=== PATIENT | male | born 1945 | race Caucasian/White ===

== ENCOUNTER 2017-02-05 06:00 | Outpatient (CLI) ==
[2017-02-06 03:37] VITALS: BMI 37.3
== END 2017-02-05 06:01 | disposition home or self-care (01) ==
LOC: AMBL 06:00
PROVIDERS: ATTEND Family Medicine
DX: I50.9 Heart failure, unspecified (principal); R41.0 Disorientation, unspecified; E16.2 Hypoglycemia, unspecified

== ENCOUNTER 2017-02-05 12:29 | Emergency (ER) ==
[2017-02-05 12:39] VITALS: BP 120/75; TEMP 96.5; BMI 36.8
[2017-02-05] MEDS ORDERED: DEXTROSE 50%-WATER ABBOJECT ONE (13:09)
[2017-02-05 13:18] LABS: BASOPHILS # (AUTO) 0.1 K/uL (0-0.2); BASOPHILS % (AUTO) 0.7 % (0.0-3.0); EOSINOPHILS # (AUTO) 0.4 K/ul (0.0-0.7); EOSINOPHILS % (AUTO) 2.9 % (0.0-7.0); HEMATOCRIT 42.4 % (42.0-52.0); HEMOGLOBIN 14.2 g/dl (14.0-18.0); IMMATURE GRANULOCYTE % (AUTO) 1.3 % (0.0-5.0); LYMPHOCYTES # (AUTO) 1.1 K/uL (0.60-3.4); LYMPHOCYTES % (AUTO) 7.5 (10.0-50.0); MEAN CORPUSCULAR HEMOGLOBIN 28.7 pg (27.0-31.0); MEAN CORPUSCULAR HGB CONC 33.5 (31.8-35.4); MEAN CORPUSCULAR VOLUME 85.7 fl (80.0-94.0); MONOCYTES # (AUTO) 1.1 K/uL (0.4-2.0); MONOCYTES % (AUTO) 7.4 (0-10); NEUTROPHILS # (AUTO) 12.1 K/ul (2.0-6.9); NEUTROPHILS % (AUTO) 80.2; PLATELET COUNT 177 10^3/uL (140-440); RED BLOOD COUNT 4.95 10^6/ul (4.70-6.10); WHITE BLOOD COUNT 15.13 K/ul (4.2-10.2)
[2017-02-05 13:33] LABS: ALBUMIN/GLOBULIN RATIO 0.97; ANION GAP 11.4; BILIRUBIN,TOTAL 0.22 mg/dL (0.00-1.20); BUN/CREATININE RATIO 33.96; CALCIUM 9.6 mg/dL (8.2-10.2); CREATININE 1.06 mg/dL (0.60-1.10); POTASSIUM 5.4 mmol/L (3.5-5.1); TOTAL PROTEIN 6.1 g/dL (5.8-8.1)
--- NOTE | 2017-02-05 14:39 | ED.PDOC ---
General ED Provider: Dr. LISE ALVARES Chief Complaint: Diabetes Stated Complaint: hypoglycemia Time Seen by Physician: 12:30 (at 5 am blood sugar was low he was unresponsive EMS GAVE [id number]) Mode of Arrival: Wheelchair Information Source: Patient, Family Exam Limitations: No limitations Primary Care Provider: ROBERT WALKER Nursing and Triage Documentation Reviewed and Agree: Yes (PT REFUSED TRANSFER AT 5 AM ARRIVED BS38 BUT NO LOC) Endocrine Complaint Exam - Diabetic Complication Complaint/Exam Symptoms Are: Resolved Initial Severity: Moderate Current Severity: Moderate Aggravating: Reports: None Alleviating: Reports: Food Associated Signs and Symptoms: Denies: Decreased LOC, Polydipsia, Polyuria, Polyphagia, Weight loss, Abdominal pain, Nausea, Vomiting, Fever, Diaphoresis, Fruity breath Related History: Reports: Similar episode Cardiac Risk Factors: Reports: DM Review of Systems - Review Of Systems Constitutional: Reports: Malaise, Weakness Eyes: Reports: No symptoms Ears, Nose, Mouth, Throat: Reports: No symptoms Respiratory: Reports: No symptoms Cardiac: Reports: No symptoms GI: Reports: No symptoms : Reports: No symptoms Musculoskeletal: Reports: No symptoms Skin: Reports: No symptoms Neurological: Reports: No symptoms Endocrine: Reports: No symptoms Hematologic/Lymphatic: Reports: No symptoms All Other Systems: Reviewed and Negative Past Medical History - Past Medical History Previously Healthy: No Endocrine: Reports: DM 2 Cardiovascular: Reports: Hypertension Respiratory: Reports: COPD Hematological: Reports: None Gastrointestinal: Reports: None Genitourinary: Reports: None Neuro/Psych: Reports: None Musculoskeletal: Reports: None Cancer: Reports: None - Surgical History General Surgical History: Reports: None - Family History Family History: Reports: None - Social History Smoking Status: Former smoker Hx Substance Use: No Alcohol Screening: None Physical Exam - Physical Exam Appearance: Well-appearing, No pain distress, Well-nourished Eyes: KD, EOMI, Conjunctiva clear ENT: Ears normal, Nose normal, Oropharynx normal Respiratory: Airway patent, Breath sounds clear, Breath sounds equal, Respirations nonlabored Cardiovascular: RRR, Pulses normal, No rub, No murmur GI/: Soft, Nontender, No masses, Bowel sounds normal, No Organomegaly Musculoskeletal: Normal strength, ROM intact, No edema, No calf tenderness Skin: Warm, Dry, Normal color Neurological: Sensation intact, Motor intact, Reflexes intact, Cranial nerves intact, Alert, Oriented Psychiatric: Affect appropriate, Mood appropriate Critical Care Note - Critical Care Note Total Time (mins): 0 Course - Course Hematology/Chemistry: 02/05/17 13:08 02/05/17 13:08 Orders, Labs, Meds: Lab Review 02/05/17 13:08 WBC 15.13 H RBC 4.95 Hgb 14.2 Hct 42.4 MCV 85.7 MCH 28.7 MCHC 33.5 RDW Coeff of Niurka 13.8 Plt Count 177 Immature Gran % (Auto) 1.3 Neut % (Auto) 80.2 Lymph % (Auto) 7.5 L [place] % (Auto) 7.4 Eos % (Auto) 2.9 Baso % (Auto) 0.7 Immature Gran # (Auto) 0.2 Neut # 12.1 H Lymph # 1.1 [place] # 1.1 Eos # 0.4 Baso # 0.1 Sodium 135 L Potassium 5.4 H Chloride 111 H Carbon Dioxide 18 L Anion Gap 11.4 BUN 36 H Creatinine 1.06 Estimated GFR (MDRD) 69.00 BUN/Creatinine Ratio 33.96 Glucose 44 L* Calcium 9.6 Total Bilirubin 0.22 AST 15 ALT 16 Alkaline Phosphatase 138 H Total Protein 6.1 Albumin 3.0 L Globulin 3.1 Albumin/Globulin Ratio 0.97 Orders Category Date Time Status ED ACCUCHECK ASSESSMENT .ONCE EMERGENCY 02/05/17 13:17 Active CBC W/ AUTO DIFF Stat LAB 02/05/17 13:08 Completed COMPREHENSIVE METABOLIC PANEL Stat LAB 02/05/17 13:08 Completed Dextrose 50 % in Water [Dextrose 50%-Water Abboject] MEDS 02/05/17 13:09 Discontinued 50 ml .ROUTE .STK-MED ONE Vital Signs: Temp Pulse Resp BP Pulse Ox 02/05/17 12:29 96.5 F L 80 20 120/75 88 L Departure - Departure Time of Disposition: 14:39 Disposition: HOME SELF-CARE Discharge Problem: Hypoglycemia Instructions: Hypoglycemia in a Person with Diabetes (ED) Condition: Good Pt referred to PMD for follow-up: No Additional Instructions: Please call your Family Physician as soon as possible to schedule a follow-up appointment. Prescriptions: Dextrose 50 % in Water [Dextrose 50%-Water Abboject] 50 ml IV ONCE #1 disp.syrin Allergies/Adverse Reactions: Allergies indomethacin [From Indocin] Adverse Reaction (Verified 02/05/17 12:48) indomethacin sodium [From Indocin] Adverse Reaction (Verified 02/05/17 12:48) morphine Adverse Reaction (Verified 02/05/17 12:48) Penicillins Adverse Reaction (Verified 02/05/17 12:48) Home Medications: Ambulatory Orders Albuterol Sulfate [Albuterol Sulfate Hfa] 90 mcg IH QID PRN 12/04/14 Amlodipine Besylate [Norvasc] 10 mg PO DAILY 12/04/14 Aspirin [Aspirin EC] 81 mg PO DAILYWM 12/04/14 Cholecalciferol (Vitamin D3) [Vitamin D-3] 5,000 unit PO DAILY 12/04/14 Cyanocobalamin (Vitamin B-12) [B-12] 100 mcg PO DAILY 12/04/14 Glipizide [Glipizide ER] 10 mg PO BID 12/04/14 Metformin HCl 500 mg PO BID 12/04/14 Omeprazole [Prilosec] 20 mg PO BIDAC 12/04/14 Tiotropium [place] [Spiriva] 1 cap IH DAILY 12/04/14 Albuterol Sulfate 0.083% Neb [Albuterol 0.083% Neb] 1 vial NEB RTBID 02/05/17 Atorvastatin Calcium [Lipitor] 80 mg PO DAILY 02/05/17 Clopidogrel Bisulfate [Plavix] 75 mg PO DAILY 02/05/17 Dextrose 50 % in Water [Dextrose 50%-Water Abboject] 50 ml IV ONCE #1 disp.syrin 02/05/17 Hydrochlorothiazide 12.5 mg PO DAILY 02/05/17 Isosorbide Dinitrate 30 mg PO DAILY 02/05/17 Metoprolol Tartrate [Lopressor] 100 mg PO BID 02/05/17 Nystatin/Triamcin [Mycolog] 1 applic TP BID 02/05/17 Spironolactone [Aldactone] 25 mg PO DAILY 02/05/17 Theophylline Anhydrous [Theophylline] 400 mg PO BEDTIME 02/05/17
[2017-02-05] MEDS ORDERED: DEXTROSE 50%-WATER ABBOJECT IVP ONE (15:03)
== END 2017-02-05 15:04 | disposition home or self-care (01) ==
LOC: ED 12:29
DX: E11.649 Type 2 diabetes mellitus with hypoglycemia without coma (principal); Z79.899 Other long term (current) drug therapy
CPT/HCPCS: 36415; 80053; 82962; 85025; 96374; 99282

== ENCOUNTER 2017-02-05 21:41 | Inpatient (IN) ==
[2017-02-05 22:37] LABS: BASOPHILS # (AUTO) 0.2 K/uL (0-0.2); BASOPHILS % (AUTO) 1.1 % (0.0-3.0); EOSINOPHILS # (AUTO) 0.5 K/ul (0.0-0.7); HEMATOCRIT 41.3 % (42.0-52.0); HEMOGLOBIN 13.6 g/dl (14.0-18.0); IMMATURE GRANULOCYTE % (AUTO) 1.5 % (0.0-5.0); LYMPHOCYTES # (AUTO) 1.5 K/uL (0.60-3.4); LYMPHOCYTES % (AUTO) 11.6 (10.0-50.0); MEAN CORPUSCULAR HEMOGLOBIN 28.2 pg (27.0-31.0); MEAN CORPUSCULAR HGB CONC 32.9 (31.8-35.4); MEAN CORPUSCULAR VOLUME 85.5 fl (80.0-94.0); MONOCYTES # (AUTO) 1.2 K/uL (0.4-2.0); MONOCYTES % (AUTO) 9.3 (0-10); NEUTROPHILS # (AUTO) 9.5 K/ul (2.0-6.9); NEUTROPHILS % (AUTO) 72.5; PLATELET COUNT 165 10^3/uL (140-440); RED BLOOD COUNT 4.83 10^6/ul (4.70-6.10); WHITE BLOOD COUNT 13.16 K/ul (4.2-10.2)
--- NOTE | 2017-02-05 22:41 | ED.PDOC ---
General ED Provider: Dr. AMBREEN NICHOLSON Chief Complaint: Hypoglycemia Stated Complaint: Been hypoglycemic whole day, no changes in medications, last BS is 54. Time Seen by Physician: 22:38 Mode of Arrival: Wheelchair Information Source: Patient Primary Care Provider: NITZA RI Nursing and Triage Documentation Reviewed and Agree: Yes Endocrine Complaint Exam - Diabetic Complication Complaint/Exam Symptoms Are: Still present Timing: Constant Initial Severity: Mild Current Severity: Mild Character: Alert Aggravating: Reports: None Alleviating: Reports: Food Associated Signs and Symptoms: Denies: Decreased LOC, Polydipsia, Polyuria, Polyphagia, Weight loss, Abdominal pain, Nausea, Vomiting, Fever, Diaphoresis, Fruity breath Cardiac Risk Factors: Reports: DM, Hypertension CVA Risk Factors: Reports: DM, Hypertension Serious Bacterial Infection Risk Factors: Reports: None Related Surgical History: Reports: None Acetone on Breath: No Dry Mucous Membranes: No Kussmaul Respirations: No Meningeal Signs: No Focal Weakness: None Focal Sensory Loss: None Gait: Normal Nystagmus Present: No Gag Reflex Present: Yes Finger to Nose: Normal Romberg Test Positive: No Babinski Sign: Negative Right, Negative Left Differential Diagnoses: Hypoglycemia, Sepsis Review of Systems - Review Of Systems Constitutional: Reports: Malaise, Weakness Eyes: Reports: No symptoms Ears, Nose, Mouth, Throat: Reports: No symptoms Respiratory: Reports: Orthopnea, Short of air Cardiac: Reports: No symptoms GI: Reports: No symptoms : Reports: No symptoms Musculoskeletal: Reports: No symptoms Skin: Reports: No symptoms Neurological: Reports: No symptoms Endocrine: Reports: No symptoms Hematologic/Lymphatic: Reports: No symptoms All Other Systems: Reviewed and Negative Past Medical History - Past Medical History Previously Healthy: No Endocrine: Reports: DM 2 Cardiovascular: Reports: Hypertension, CHF Respiratory: Reports: COPD Hematological: Reports: None Gastrointestinal: Reports: None Genitourinary: Reports: None Neuro/Psych: Reports: None Musculoskeletal: Reports: None Cancer: Reports: None - Surgical History General Surgical History: Reports: None - Family History Family History: Reports: None - Social History Smoking Status: Former smoker Hx Substance Use: No Alcohol Screening: None - Immunizations Tetanus Shot up to Date: Yes Physical Exam - Physical Exam Appearance: Well-appearing, No pain distress, Well-nourished Eyes: KD, EOMI, Conjunctiva clear ENT: Ears normal, Nose normal, Oropharynx normal Respiratory: Airway patent, Breath sounds clear, Breath sounds equal, Respirations nonlabored Cardiovascular: RRR, Pulses normal, No rub, No murmur GI/: Soft, Nontender, No masses, Bowel sounds normal, No Organomegaly Musculoskeletal: Normal strength, ROM intact, No edema, No calf tenderness Skin: Warm, Dry, Normal color Neurological: Sensation intact, Motor intact, Reflexes intact, Cranial nerves intact, Alert, Oriented Psychiatric: Affect appropriate, Mood appropriate Re-Evaluation - Re-Evaluation Time of Re-Evaluation: 02:48 (72) Status: Unchanged, Improved Critical Care Note - Critical Care Note Total Time (mins): 0 Course - Course Hematology/Chemistry: 02/05/17 22:30 02/05/17 22:30 Orders, Labs, Meds: Lab Review 02/05/17 22:30 WBC 13.16 H RBC 4.83 Hgb 13.6 L Hct 41.3 L MCV 85.5 MCH 28.2 MCHC 32.9 RDW Coeff of Niurka 14.0 Plt Count 165 Immature Gran % (Auto) 1.5 Neut % (Auto) 72.5 Lymph % (Auto) 11.6 [place] % (Auto) 9.3 Eos % (Auto) 4.0 Baso % (Auto) 1.1 Immature Gran # (Auto) 0.2 Neut # 9.5 H Lymph # 1.5 [place] # 1.2 Eos # 0.5 Baso # 0.2 Sodium 135 L Potassium 5.7 H Chloride 110 H Carbon Dioxide 19 L Anion Gap 11.7 BUN 37 H Creatinine 1.13 H Estimated GFR (MDRD) 64.00 BUN/Creatinine Ratio 32.74 Glucose 44 L* Calcium 9.2 Total Bilirubin 0.22 AST 14 L ALT 15 Alkaline Phosphatase 139 H Total Protein 5.9 Albumin 2.9 L Globulin 3.0 Albumin/Globulin Ratio 0.97 Orders Category Date Time Status ACCUCHECK (ED) [ED ACCUCHECK ASSESSMENT] .ONCE EMERGENCY 02/06/17 00:40 Active Saline Lock [ED IV/MEDIPORT/POWERPORT] .ONCE EMERGENCY 02/05/17 22:22 Active CBC W/ AUTO DIFF Stat LAB 02/05/17 22:30 Completed COMPREHENSIVE METABOLIC PANEL Stat LAB 02/05/17 22:30 Completed 0.9 % Sodium Chloride [Saline Flush] MEDS 02/05/17 22:22 Ordered 1 syr IVF PRN PRN Dextrose 5 % and 0.9 % NaCl [Dextrose 5%-Ns IV Solution MEDS 02/05/17 22:59 Discontinued ] 1,000 ml IV 250 mls/hr Dextrose 5 % and 0.9 % NaCl [Dextrose 5%-Ns IV Solution MEDS 02/05/17 23:30 Active ] 1,000 ml IV 50 mls/hr Dextrose 50 % in Water [Dextrose 50%-Water Abboject] MEDS 02/05/17 23:14 Discontinued 50 ml IVP ONCE STA Medications Generic Name Dose Route Start Last Admin Trade Name Freq PRN Reason Stop Dose Admin Dextrose/Sodium Chloride 1,000 mls @ 50 mls/hr 02/05/17 23:30 02/05/17 23:46 Dextrose 5%-Ns Iv Solution IV 02/06/17 18:58 50 mls/hr .Q20H STA Administration Sodium Chloride 1 syr 02/05/17 22:22 Saline Flush IVF PRN PRN To flush IV Discontinued Medications Generic Name Dose Route Start Last Admin Trade Name Freq PRN Reason Stop Dose Admin Dextrose 50 ml 02/05/17 23:14 02/05/17 23:27 Dextrose 50%-Water Abboject IVP 02/05/17 23:15 50 ml ONCE STA Administration Dextrose/Sodium Chloride 1,000 mls @ 250 mls/hr 02/05/17 22:59 02/05/17 23:27 Dextrose 5%-Ns Iv Solution IV 02/06/17 02:58 250 mls/hr .Q4H STA Administration Vital Signs: Temp Pulse Resp BP Pulse Ox 02/05/17 21:44 98.1 F 74 22 107/71 87 L Departure - Departure Time of Disposition: 02:00 Disposition: ADMITTED INPATIENT Discharge Problem: Hypoglycemia Instructions: Hypoglycemia in a Person with Diabetes (ED) Condition: Stable Pt referred to PMD for follow-up: Yes Additional Instructions: stop taking glipizide. keep checking the blood sugars needs f/u with PMD Allergies/Adverse Reactions: Allergies indomethacin [From Indocin] Adverse Reaction (Verified 02/05/17 21:54) indomethacin sodium [From Indocin] Adverse Reaction (Verified 02/05/17 21:54) morphine Adverse Reaction (Verified 02/05/17 21:54) Penicillins Adverse Reaction (Verified 02/05/17 21:54) Home Medications: Ambulatory Orders Albuterol Sulfate [Albuterol Sulfate Hfa] 90 mcg IH QID PRN 12/04/14 Amlodipine Besylate [Norvasc] 10 mg PO DAILY 12/04/14 Aspirin [Aspirin EC] 81 mg PO DAILYWM 12/04/14 Cholecalciferol (Vitamin D3) [Vitamin D-3] 5,000 unit PO DAILY 12/04/14 Cyanocobalamin (Vitamin B-12) [B-12] 100 mcg PO DAILY 12/04/14 Glipizide [Glipizide ER] 10 mg PO BID 12/04/14 Metformin HCl 500 mg PO BID 12/04/14 Omeprazole [Prilosec] 20 mg PO BIDAC 12/04/14 Tiotropium [place] [Spiriva] 1 cap IH DAILY 12/04/14 Albuterol Sulfate 0.083% Neb [Albuterol 0.083% Neb] 1 vial NEB RTBID 02/05/17 Atorvastatin Calcium [Lipitor] 80 mg PO DAILY 02/05/17 Clopidogrel Bisulfate [Plavix] 75 mg PO DAILY 02/05/17 Hydrochlorothiazide 12.5 mg PO DAILY 02/05/17 Isosorbide Dinitrate 30 mg PO DAILY 02/05/17 Metoprolol Tartrate [Lopressor] 100 mg PO BID 02/05/17 Nystatin/Triamcin [Mycolog] 1 applic TP BID 02/05/17 Spironolactone [Aldactone] 25 mg PO DAILY 02/05/17 Theophylline Anhydrous [Theophylline] 400 mg PO BEDTIME 02/05/17 Disposition Discussed With: Patient, Family
[2017-02-05 22:56] LABS: ALBUMIN 2.9 g/dL (3.4-5.0); ALBUMIN/GLOBULIN RATIO 0.97; ANION GAP 11.7; BILIRUBIN,TOTAL 0.22 mg/dL (0.00-1.20); BUN/CREATININE RATIO 32.74; CALCIUM 9.2 mg/dL (8.2-10.2); CREATININE 1.13 mg/dL (0.60-1.10); POTASSIUM 5.7 mmol/L (3.5-5.1); TOTAL PROTEIN 5.9 g/dL (5.8-8.1)
[2017-02-05] MEDS ORDERED: DEXTROSE 25%-WATER SYRINGE IVP ONE (22:59)
[2017-02-05] MEDS ORDERED: DEXTROSE 5%-NS IV SOLUTION 1,000 ML IV STA ×2 (22:59→23:30)
[2017-02-05] MEDS ORDERED: DEXTROSE 50%-WATER ABBOJECT IVP STA (23:14)
[2017-02-06] MEDS ORDERED: D5%-NS-KCL 20 MEQ/L IV SOL 1,000 ML IV SCH (03:00)
[2017-02-06 03:37] VITALS: BMI 37.3
[2017-02-06 04:51] LABS: BASOPHILS # (AUTO) 0.1 K/uL (0-0.2); BASOPHILS % (AUTO) 1.2 % (0.0-3.0); EOSINOPHILS # (AUTO) 0.6 K/ul (0.0-0.7); EOSINOPHILS % (AUTO) 5.3 % (0.0-7.0); HEMATOCRIT 40.4 % (42.0-52.0); HEMOGLOBIN 13.2 g/dl (14.0-18.0); IMMATURE GRANULOCYTE % (AUTO) 1.7 % (0.0-5.0); LYMPHOCYTES # (AUTO) 1.6 K/uL (0.60-3.4); LYMPHOCYTES % (AUTO) 14.8 (10.0-50.0); MEAN CORPUSCULAR HEMOGLOBIN 28.3 pg (27.0-31.0); MEAN CORPUSCULAR HGB CONC 32.7 (31.8-35.4); MEAN CORPUSCULAR VOLUME 86.5 fl (80.0-94.0); MONOCYTES # (AUTO) 1.1 K/uL (0.4-2.0); NEUTROPHILS # (AUTO) 7.1 K/ul (2.0-6.9); PLATELET COUNT 121 10^3/uL (140-440); RED BLOOD COUNT 4.67 10^6/ul (4.70-6.10); WHITE BLOOD COUNT 10.64 K/ul (4.2-10.2)
[2017-02-06 05:08] LABS: ALBUMIN 2.7 g/dL (3.4-5.0); ANION GAP 10.9; BILIRUBIN,TOTAL 0.31 mg/dL (0.00-1.20); BUN/CREATININE RATIO 28.44; CALCIUM 9.1 mg/dL (8.2-10.2); CREATININE 1.09 mg/dL (0.60-1.10); POTASSIUM 5.9 mmol/L (3.5-5.1); TOTAL PROTEIN 5.4 g/dL (5.8-8.1)
[2017-02-06] MEDS: ALBUTEROL 0.083% NEB NEB SCH ×2 (05:40→17:03)
[2017-02-06] MEDS: DEXTROSE 5%-NS IV SOLUTION 1,000 ML IV SCH (05:55)
[2017-02-06] MEDS: PRILOSEC PO SCH ×2 (06:20→16:52)
[2017-02-06] MEDS ORDERED: LOVENOX SUBCUT SCH (09:00)
[2017-02-06] MEDS ORDERED: NON-FORMULARY MEDICATION (Atorvastatin Calcium [Lipitor] 80 MG) PO SCH ×22 (09:00)
[2017-02-06] MEDS ORDERED: NON-FORMULARY MEDICATION (Cholecalciferol (Vitamin D3) [Vitamin D3] 5,000 UNIT) PO SCH ×22 (09:00)
[2017-02-06] MEDS ORDERED: NON-FORMULARY MEDICATION (Hydrochlorothiazide [Hydrochlorothiazide] 12.5 MG) PO SCH ×22 (09:00)
[2017-02-06] MEDS ORDERED: NON-FORMULARY MEDICATION (Metoprolol Tartrate [Lopressor] 100 MG) PO SCH ×22 (09:00)
[2017-02-06] MEDS ORDERED: NON-FORMULARY MEDICATION (Isosorbide Dinitrate [Isosorbide Dinitrate] 30 MG) PO SCH ×22 (09:00)
[2017-02-06] MEDS: ASPIRIN EC PO SCH (09:30)
[2017-02-06] MEDS: ALDACTONE PO SCH (09:30)
[2017-02-06] MEDS: CYANOCOBALAMIN 100 MCG PO SCH (09:30)
[2017-02-06] MEDS: LIPITOR PO SCH (09:31)
[2017-02-06] MEDS: HYDROCHLOROTHIAZIDE PO SCH (09:31)
[2017-02-06] MEDS: LOPRESSOR PO SCH ×2 (09:33→20:10)
[2017-02-06] MEDS: MYCOLOG TP SCH ×2 (09:35→20:10)
[2017-02-06] MEDS: NORVASC PO SCH (09:37)
[2017-02-06] MEDS: PLAVIX PO SCH (09:37)
[2017-02-06] MEDS: SPIRIVA IH SCH (09:39)
[2017-02-06] MEDS: SORBITRATE PO SCH (09:39)
[2017-02-06] MEDS: VITAMIN D PO SCH (09:40)
[2017-02-06 10:26] LABS: CREATINE KINASE 25 U/L; POTASSIUM 5.5 mmol/L (3.5-5.1)
[2017-02-06] MEDS ORDERED: KAYEXALATE SUSP PO STA (10:45)
[2017-02-06 17:50] LABS: CREATINE KINASE 22 U/L
[2017-02-06] MEDS: THEOPHYLLINE ANHYDROUS 400 MG PO SCH (20:11)
[2017-02-07] MEDS: DEXTROSE 5%-NS IV SOLUTION 1,000 ML IV SCH (02:58)
[2017-02-07] MEDS: ALBUTEROL 0.083% NEB NEB SCH ×2 (05:00→17:05)
[2017-02-07 05:02] LABS: BASOPHILS # (AUTO) 0.1 K/uL (0-0.2); BASOPHILS % (AUTO) 1.2 % (0.0-3.0); EOSINOPHILS # (AUTO) 0.5 K/ul (0.0-0.7); EOSINOPHILS % (AUTO) 5.4 % (0.0-7.0); HEMATOCRIT 39.1 % (42.0-52.0); HEMOGLOBIN 12.6 g/dl (14.0-18.0); IMMATURE GRANULOCYTE % (AUTO) 0.8 % (0.0-5.0); LYMPHOCYTES # (AUTO) 1.3 K/uL (0.60-3.4); LYMPHOCYTES % (AUTO) 15.1 (10.0-50.0); MEAN CORPUSCULAR HEMOGLOBIN 28.1 pg (27.0-31.0); MEAN CORPUSCULAR HGB CONC 32.2 (31.8-35.4); MEAN CORPUSCULAR VOLUME 87.1 fl (80.0-94.0); MONOCYTES # (AUTO) 0.8 K/uL (0.4-2.0); MONOCYTES % (AUTO) 9.3 (0-10); NEUTROPHILS # (AUTO) 5.7 K/ul (2.0-6.9); NEUTROPHILS % (AUTO) 68.2; PLATELET COUNT 113 10^3/uL (140-440); RED BLOOD COUNT 4.49 10^6/ul (4.70-6.10)
[2017-02-07] MEDS: PRILOSEC PO SCH ×2 (05:30→17:29)
[2017-02-07 05:36] LABS: ALBUMIN 2.5 g/dL (3.4-5.0); ALBUMIN/GLOBULIN RATIO 0.96; ANION GAP 9.7; BILIRUBIN,TOTAL 0.35 mg/dL (0.00-1.20); BUN/CREATININE RATIO 23.4; CALCIUM 8.9 mg/dL (8.2-10.2); CREATININE 0.94 mg/dL (0.60-1.10); POTASSIUM 5.7 mmol/L (3.5-5.1); TOTAL PROTEIN 5.1 g/dL (5.8-8.1)
[2017-02-07] MEDS: CYANOCOBALAMIN 100 MCG PO SCH (09:16)
[2017-02-07] MEDS: ASPIRIN EC PO SCH (09:16)
[2017-02-07] MEDS: ALDACTONE PO SCH (09:16)
[2017-02-07] MEDS: HYDROCHLOROTHIAZIDE PO SCH (09:17)
[2017-02-07] MEDS: LIPITOR PO SCH (09:18)
[2017-02-07] MEDS: LOPRESSOR PO SCH ×2 (09:19→20:34)
[2017-02-07] MEDS: NORVASC PO SCH (09:20)
[2017-02-07] MEDS: MYCOLOG TP SCH ×3 (09:20→21:56)
[2017-02-07] MEDS: PLAVIX PO SCH (09:20)
[2017-02-07] MEDS: SORBITRATE PO SCH (09:21)
[2017-02-07] MEDS: SPIRIVA IH SCH (09:22)
[2017-02-07] MEDS: VITAMIN D PO SCH (09:22)
[2017-02-07] MEDS: GLUCOPHAGE PO SCH (20:33)
[2017-02-07] MEDS: THEOPHYLLINE ANHYDROUS 400 MG PO SCH (20:35)
[2017-02-08 05:05] LABS: BASOPHILS # (AUTO) 0.1 K/uL (0-0.2); EOSINOPHILS # (AUTO) 0.5 K/ul (0.0-0.7); EOSINOPHILS % (AUTO) 5.1 % (0.0-7.0); HEMATOCRIT 40.2 % (42.0-52.0); HEMOGLOBIN 13.2 g/dl (14.0-18.0); IMMATURE GRANULOCYTE % (AUTO) 0.8 % (0.0-5.0); LYMPHOCYTES # (AUTO) 1.3 K/uL (0.60-3.4); LYMPHOCYTES % (AUTO) 12.6 (10.0-50.0); MEAN CORPUSCULAR HEMOGLOBIN 28.2 pg (27.0-31.0); MEAN CORPUSCULAR HGB CONC 32.8 (31.8-35.4); MEAN CORPUSCULAR VOLUME 85.9 fl (80.0-94.0); MONOCYTES # (AUTO) 0.8 K/uL (0.4-2.0); MONOCYTES % (AUTO) 7.9 (0-10); NEUTROPHILS # (AUTO) 7.6 K/ul (2.0-6.9); NEUTROPHILS % (AUTO) 72.6; PLATELET COUNT 125 10^3/uL (140-440); RED BLOOD COUNT 4.68 10^6/ul (4.70-6.10)
[2017-02-08] MEDS: ALBUTEROL 0.083% NEB NEB SCH (05:25)
[2017-02-08 05:32] LABS: ALBUMIN 2.7 g/dL (3.4-5.0); BILIRUBIN,TOTAL 0.45 mg/dL (0.00-1.20); BUN/CREATININE RATIO 29.41; CALCIUM 9.7 mg/dL (8.2-10.2); CREATININE 0.85 mg/dL (0.60-1.10); TOTAL PROTEIN 5.4 g/dL (5.8-8.1)
[2017-02-08] MEDS: PRILOSEC PO SCH (05:32)
[2017-02-08] MEDS: CYANOCOBALAMIN 100 MCG PO SCH (09:09)
[2017-02-08] MEDS: ASPIRIN EC PO SCH (09:11)
[2017-02-08] MEDS: GLUCOPHAGE PO SCH (09:11)
[2017-02-08] MEDS: HYDROCHLOROTHIAZIDE PO SCH (09:11)
[2017-02-08] MEDS: ALDACTONE PO SCH (09:11)
[2017-02-08] MEDS: LIPITOR PO SCH (09:11)
[2017-02-08] MEDS: LOPRESSOR PO SCH (09:12)
[2017-02-08] MEDS: PLAVIX PO SCH (09:12)
[2017-02-08] MEDS: NORVASC PO SCH (09:12)
[2017-02-08] MEDS: SORBITRATE PO SCH (09:12)
[2017-02-08] MEDS: SPIRIVA IH SCH (09:13)
[2017-02-08] MEDS: VITAMIN D PO SCH (09:13)
[2017-02-08] MEDS: MYCOLOG TP SCH (09:13)
[2017-02-08 10:19] VITALS: BP 105/61; TEMP 97.2
--- NOTE | 2017-02-12 13:34 | HP ---
CHIEF COMPLAINT: Low blood sugar, unresponsive initially. SOURCE OF HISTORY: Patient, as well as records from the emergency room, triage and M.D. HISTORY OF PRESENT ILLNESS: The patient on the morning of 02/05/17 had an episode of hypoglycemia and became unresponsive and the family had called the ambulance. The patient was given hypertonic glucose IV at home and the patient had regained consciousness and refused to come to the hospital with the ambulance at that point. The blood sugar, however, came down again and the patient finally presented to the emergency room about 12:30 because of the hypoglycemia. The patient was evaluated and was given hypertonic glucose and discharged. The family had monitored the blood sugar via accucheck several times and the patient was trying to eat as much as he could and the sugar was still below normal. The patient then came back to the emergency room at 9:44 p.m. The last blood sugar was 9:05 p.m. at 51 at home. The patient had contacted the provider, Dr. Bonilla from the [facility] in [place]. The patient had an appointment with Dr. Bonilla at 10:30 in the morning on 02/06/2017. The patient did not take the Glipizide, evening dose, on 02/05/17. The patient was then admitted because of recurrent hypoglycemia in spite of IV Dextrose and increasing oral intake of calories. PAST PERSONAL HISTORY: The patient had diabetes mellitus type II and receiving Metformin and Glipizide. Coronary artery disease and with cardiac catheterization and stents in 2014. History of heart failure and admitted at [facility] about two weeks ago. Sleep apnea on C-PAP. Chronic tobacco use and abuse, stopped 2004. Colonoscopy, endoscopy three years ago. COPD, hypertension. The patient had been obese for some time and the BMI today is 37.3. FAMILY HISTORY: Father had myocardial infarction, mother had congestive heart failure. SOCIAL HISTORY: The patient is and resides with his . Children are grown. He stopped smoking 2004 and no alcoholic beverages. He goes to the '[facility] clinic in [place] for his medical care. HOME MEDICATIONS: Prior to this admission. Spiriva 18 mcg cap daily Aspirin 81 mg daily Prilosec 20 mg twice a day Metformin 500 mg twice a day Glipizide ER 10 mg twice a day Vitamin B12 1,000 mcg tablet daily Vitamin D3 5000 IU daily Norvasc 10 mg daily Albuterol Sulfate HFA 90 mcg inhalation four times a day as needed Mycolog cream apply twice a day externally Isosorbide Dinitrate 30 mg daily Hydrochlorothiazide 12.5 mg daily Plavix 75 mg daily Lipitor 80 mg daily Albuterol Sulfate 0.083% vial for nebulization twice a day Aldactone 25 mg daily Metoprolol Tartrate 100 mg twice a day Theophylline 400 mg tablet at bedtime ALLERGIES: Indomethacin, Morphine and Penicillin. REVIEW OF SYSTEMS: CONSTITUTIONAL: The patient is alert and responsive and oriented, but has some weakness, but no tremors. This patient is receiving IV Dextrose. 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 No significant headaches. No loss of consciousness, but had earlier about 5 o'clock 02/05/2017. VISUAL: Denies any diplopia, blurred vision or transient loss of vision. AUDITORY: Hearing is somewhat decreased, but no tinnitus, no pain, no drainage. RESPIRATORY: The patient has shortness of breath with minimal exertion. This patient was admitted to [facility] in [place] for congestive heart failure. CARDIOVASCULAR: The patient denies any chest pain, chest tightness. History of coronary artery disease with stents and has history of congestive heart failure , recent. GASTROINTESTINAL: No nausea, anorexia, vomiting or diarrhea. GENITOURINARY: Denies any involuntary urination or BM. He denies any pain on urination. MUSCULOSKELETAL: The patient has some joint pains, but not different from the previous times. INTEGUMENT: No significant rash or pruritus. ENDOCRINE: The patient denies any polyuria or polydipsia, but he does have hypoglycemia secondary to the medication Glipizide ER. HEMATOLOGIC: No history of prolonged bleeding. PSYCHIATRIC: Affect is normal. PHYSICAL EXAMINATION: GENERAL: We have a 71 year old male admitted to the hospital because of persistent hypoglycemia in spite of IV hypertonic Dextrose and food. He was seen in the emergency room and discharged and again came back to the emergency room on the same day. He was admitted to the hospital on 02/06/2017. He was released from the emergency room on 02/06/17 at 2 a.m. VITAL SIGNS: Temperature 97, pulse 63, blood pressure 141/79, respiratory rate 24, oxygen saturation 94 at 4 liters of oxygen. HEAD: Unremarkable. FACE: Symmetrical and equal with no facial weakness. No remarkable tenderness to palpation under pressure in the frontal or maxillary sinus areas. EYES: Pupils equal/reactive to light about 3 mm in size. Conjunctivae not pale. Sclerae not icteric. MOUTH: Unremarkable. THROAT: No inflammation, no tumors. NECK: No masses. No bruit. No tenderness. CHEST: Essentially symmetrical and equal with acceptable expansion. No remarkable tenderness. LUNGS: Breath sounds are diminished in both sides, more so on the left with some rales at the left lower third. HEART: Audible and regular with good tones. No murmurs. ABDOMEN: Markedly protuberant, soft with no remarkable tenderness. No guarding. Bowel sounds are active. No masses palpable and no bruit. EXTERNAL GENITALIA: Not examined. RECTAL: Not performed. LOWER EXTREMITIES: Edematous ankles and legs. Pedal pulses are absent. UPPER EXTREMITIES: Symmetrical and equal. ASSESSMENT: 1. HYPOGLYCEMIA, IATROGENIC (Glipizide ER 10 mg twice a day). 2. DIABETES MELLITUS 3. HISTORY OF CORONARY ARTERY DISEASE, STATUS POST CARDIAC CATHETERIZATION AND STENT 4. HISTORY OF CHRONIC OBSTRUCTIVE PULMONARY DISEASE, SEVERE 5. HISTORY OF SLEEP APNEA ON C-PAP 6. HISTORY OF HYPERTENSION ON MEDICATION 7. HISTORY OF ELEVATED BMI, PERSISTENT 8. HISTORY OF CHRONIC TOBACCO USE AND ABUSE, STOPPED 2004 9. POSSIBLE INSULIN RESISTANCE SYNDROME MTDD
--- NOTE | 2017-02-12 13:57 | DS ---
PATIENT IDENTIFICATION: 71 year old male who has Type II diabetes mellitus was admitted to the hospital because of persistent hypoglycemia in spite of administration of hypertonic glucose times two, as well as increased oral intake of food. The upon presentation to the emergency room was note to have a blood sugar of 44 mg percent. HOSPITAL COURSE: 71 year old male who is known to be a type II diabetic with oral medications consisting of Metformin 500 mg twice a day and Glipizide ER 10 mg twice a day. The patient is also known to have coronary artery disease, status post stent deployment times two. He also has chronic obstructive pulmonary disease, severe, as well as sleep apnea and hypertension. This patient had a persistent elevated BMI. The patient was given IV Dextrose continuously IV drip on his admission and also a regular diet. The patient's subsequent blood test on 02/06/2017 showed a blood sugar of 84, A1C of 5.9, Insulin fasting 45.7, C-peptide 5.9, MARGARET 65 autoantibody pending. The patient had not had any loss of consciousness and no episodes of diaphoresis or tremors or shaking. The patient is stable and was afebrile on admission and remained afebrile. His blood pressure remained normal through out his hospital stay. The patient's shortness of breath has improved somewhat. He does have a C-PAP at home. Physical examination findings remained about the same, although somewhat better at the day of discharge. LUNGS: There is no expiratory wheezing. HEART: Audible with good tones. ABDOMEN: Nontender. LOWER EXTREMITIES: No pain in the posterior leg area at the time of discharge. FINAL DIAGNOSES: 1. HYPOGLYCEMIA, IATROGENIC, GLIPIZIDE ER 2. TYPE II DIABETES MELLITUS 3. INSULIN RESISTANCE SYNDROME 4. PERSISTENTLY ELEVATED BMI 5. CORONARY ARTERY DISEASE, STATUS POST CARDIAC CATHETERIZATION AND TWO CORONARY STENTS 6. CHRONIC OBSTRUCTIVE PULMONARY DISEASE BY HISTORY SEVERE 7. SLEEP APNEA BY HISTORY ON C-PAP 8. HISTORY OF HYPERTENSION ON MEDICATION 9. PERIPHERAL ARTERIAL DISEASE 10. HISTORY OF CONGESTIVE HEART FAILURE, RECENTLY TREATED AT [facility] PROGNOSIS: Guarded. PLAN: [facility] and follow up with them this coming week for review of medications. [facility]PITALCynthia
--- NOTE | 2017-02-12 14:09 | PN ---
DATE OF VISIT: 02/07/2017 The patient is alert and feeling better and responsive and oriented. He had not had any unresponsive episodes while in the hospital. His repeat CBC still showed anemia with a WBC that is now normal at 8,300 from 13,160. Platelet count is down to 113 and was 165 on admission. Potassium on admission was 5.7 and is still 5.7 today. His GFR is better at 79 from 64 on admission. Blood sugar 167 and was 94 last 02/06/17. A1C is 5.5, fasting insulin 45.7, plasma c- peptide is 5.9. LUNGS: He still has some shortness of breath on exertion. Auscultation findings essentially the same and no wheezing. LOWER EXTREMITIES: No tenderness in the calf muscles. HEART: Normal sinus rhythm. ASSESSMENT: This patient has insulin resistance syndrome and is a type II diabetes mellitus. This patient probably should not take any Sulfonylurea anymore. The GLP 1 probably would address most of the defects including the insulin resistance. TANIA
== END 2017-02-08 13:40 | disposition home or self-care (01) | DRG 645 ==
LOC: ED 21:41 → MEDSURG A 02-06 02:58
PROVIDERS: ADMIT General Practice; ATTEND General Practice
DX: E16.0 Drug-induced hypoglycemia without coma (principal); T38.3X5A Adverse effect of insulin and oral hypoglycemic [antidiabetic] drugs, initial encounter; E11.9 Type 2 diabetes mellitus without complications; E88.81 Metabolic syndrome and other insulin resistance; I10 Essential (primary) hypertension; R06.02 Shortness of breath; R63.8 Other symptoms and signs concerning food and fluid intake; I25.10 Atherosclerotic heart disease of native coronary artery without angina pectoris; J44.9 Chronic obstructive pulmonary disease, unspecified; G47.30 Sleep apnea, unspecified; I73.9 Peripheral vascular disease, unspecified; D64.9 Anemia, unspecified; I50.9 Heart failure, unspecified; E16.2 Hypoglycemia, unspecified; R06.01 Orthopnea; Y92.239 Unspecified place in hospital as the place of occurrence of the external cause; Z95.5 Presence of coronary angioplasty implant and graft; Z79.01 Long term (current) use of anticoagulants; Z79.84 Long term (current) use of oral hypoglycemic drugs; Z79.899 Other long term (current) drug therapy; Z87.891 Personal history of nicotine dependence
CPT/HCPCS: 36415; 80053; 80198; 82550; 82962; 83036; 83519; 83525; 84132; 84484; 84681; 85025; 87081; 93005; 93010; 94640; 96361; 96374; 97802; 99223; 99232; 99239; 99284

== ENCOUNTER 2017-02-17 12:03 | Emergency (ER) ==
[2017-02-17 12:11] VITALS: BP 143/98; TEMP 96.2; BMI 37.9
--- NOTE | 2017-02-17 13:26 | CT ---
EXAM: CT left hand without contrast HISTORY: Significant left hand swelling post IV at outside hospital. COMPARISON: None TECHNIQUE: Serial axial images of the left hand were obtained without contrast. These were reviewe d in multiple planes. FINDINGS: The soft tissues demonstrate scattered subcutaneous ground-glass in the soft tissues of th e left wrist and hand. No focal fluid collection is identified. The tendinous structures are intac t. The musculature is unremarkable. The osseous structures demonstrate the distal radius are intac t. There is scattered degenerative disease of the carpal bones with areas of narrowing and subchond ral cystic and osteophyte formation. The distal phalanx of the fourth digit is absent. The sagittal views demonstrate anterior displacement of the scaphoid with mild posterior angulation in relation to the capitate with significant narrowing. There is anterior angulation of the scaphoid. IMPRESSION: 1. Mild subcutaneous scattered soft tissue edema with no focal fluid collection. 2. Scattered degenerative disease throughout the wrist and hand with findings consistent with dorsa l inner collated segmental instability
--- NOTE | 2017-02-17 14:01 | ED.PDOC ---
General ED Provider: Dr. LISE ALVARES Chief Complaint: Hand Pain/Injury Stated Complaint: LEFT HAND SUBCUTANOUS NOUDLE/HEMATOMA Time Seen by Physician: 12:00 (MARECH 19 HAD AN IV PLACED [place] [facility] ) Mode of Arrival: Walk-In Information Source: Patient Exam Limitations: No limitations Primary Care Provider: NITZA MD Nursing and Triage Documentation Reviewed and Agree: Yes Musculoskeletal Complaint Exam - Hand/Wrist Complaint/Exam Location of Pain: Reports: Left, Hand Mechanism of Injury: Reports: No known trauma Onset/Duration: 1 WEEK SEE PHOTOS Symptoms Are: Still present Onset of Pain: Reports: Days Initial Severity: Moderate Current Severity: Moderate Location: Reports: Discrete Character: Reports: Aching Alleviating: Reports: None Aggravating: Reports: None Associated Signs and Symptoms: Reports: Swelling. Denies: Redness, Bruising, Fever, Weakness, Numbness, Tingling Hand/Wrist Findings: Present: Swelling ( SEE PHOTO) Review of Systems - Review Of Systems Constitutional: Reports: No symptoms Eyes: Reports: No symptoms Ears, Nose, Mouth, Throat: Reports: No symptoms Respiratory: Reports: No symptoms Cardiac: Reports: No symptoms GI: Reports: No symptoms : Reports: No symptoms Musculoskeletal: Reports: Other (LEFT HAND DORSAL NODULE/HEMATOMA) Skin: Reports: No symptoms Neurological: Reports: No symptoms Endocrine: Reports: No symptoms Hematologic/Lymphatic: Reports: No symptoms All Other Systems: Reviewed and Negative Past Medical History - Past Medical History Previously Healthy: No Endocrine: Reports: DM 2 Cardiovascular: Reports: Hypertension, CHF Respiratory: Reports: COPD Hematological: Reports: None Gastrointestinal: Reports: None Genitourinary: Reports: None Neuro/Psych: Reports: None Musculoskeletal: Reports: None Cancer: Reports: None - Surgical History General Surgical History: Reports: None - Family History Family History: Reports: None - Social History Smoking Status: Former smoker Hx Substance Use: No Alcohol Screening: None Physical Exam - Physical Exam Appearance: Well-appearing, No pain distress, Well-nourished Eyes: KD, EOMI, Conjunctiva clear ENT: Ears normal, Nose normal, Oropharynx normal Respiratory: Airway patent, Breath sounds clear, Breath sounds equal, Respirations nonlabored Cardiovascular: RRR, Pulses normal, No rub, No murmur GI/: Soft, Nontender, No masses, Bowel sounds normal, No Organomegaly Musculoskeletal: ROM intact (HAS A NOUDLE/ HEMATOMA 3 CM SEE PHOTO) Skin: Warm, Dry, Normal color Neurological: Sensation intact, Motor intact, Reflexes intact, Cranial nerves intact, Alert, Oriented Psychiatric: Affect appropriate, Mood appropriate Critical Care Note - Critical Care Note Total Time (mins): 0 Course - Course Orders, Labs, Meds: Orders Category Date Time Status CT HAND LEFT WITHOUT CONTRAST Stat RADS 02/17/17 12:15 Completed Vital Signs: Temp Pulse Resp BP Pulse Ox 02/17/17 12:04 96.2 F L 70 28 H 143/98 H 86 L Departure - Departure Time of Disposition: 14:02 (D/C INST GIVEN WITH [facility]ATHOL[facility] PRIEST AT BED SIDE ) Disposition: HOME SELF-CARE Discharge Problem: Hand pain Traumatic hematoma of hand Qualifiers: Encounter type: initial encounter Laterality: left Qualifier Code: (S60.222A) Contusion of left hand, initial encounter Instructions: Hematoma (ED) Condition: Good Pt referred to PMD for follow-up: No Additional Instructions: Please call your Family Physician as soon as possible to schedule a follow-up appointment. Allergies/Adverse Reactions: Allergies indomethacin [From Indocin] Adverse Reaction (Verified 02/17/17 12:10) indomethacin sodium [From Indocin] Adverse Reaction (Verified 02/17/17 12:10) morphine Adverse Reaction (Verified 02/17/17 12:10) Penicillins Adverse Reaction (Verified 02/17/17 12:10) Home Medications: Ambulatory Orders Albuterol Sulfate [Albuterol Sulfate Hfa] 90 mcg IH QID PRN 12/04/14 Amlodipine Besylate [Norvasc] 10 mg PO DAILY 12/04/14 Aspirin [Aspirin EC] 81 mg PO DAILYWM 12/04/14 Cholecalciferol (Vitamin D3) [Vitamin D3] 5,000 unit PO DAILY 12/04/14 Cyanocobalamin (Vitamin B-12) [B-12] 100 mcg PO DAILY 12/04/14 Metformin HCl 500 mg PO BID 12/04/14 Omeprazole [Prilosec] 20 mg PO BIDAC 12/04/14 Tiotropium [place] [Spiriva] 1 cap IH DAILY 12/04/14 Albuterol Sulfate 0.083% Neb [Albuterol 0.083% Neb] 1 vial NEB RTBID 02/05/17 Atorvastatin Calcium [Lipitor] 80 mg PO DAILY 02/05/17 Clopidogrel Bisulfate [Plavix] 75 mg PO DAILY 02/05/17 Hydrochlorothiazide 12.5 mg PO DAILY 02/05/17 Isosorbide Dinitrate 30 mg PO DAILY 02/05/17 Metoprolol Tartrate [Lopressor] 100 mg PO BID 02/05/17 Nystatin/Triamcin [Mycolog] 1 applic TP BID 02/05/17 Spironolactone [Aldactone] 25 mg PO DAILY 02/05/17 Theophylline Anhydrous [Theophylline] 400 mg PO BEDTIME 02/05/17 Hydrocodone/Acetaminophen [[place] 5-325 Tablet] 1 each PO Q6HR PRN #12 tablet 07/28 Disposition Discussed With: Patient, Family
== END 2017-02-17 14:42 | disposition home or self-care (01) ==
LOC: ED 12:03
DX: S60.222A Contusion of left hand, initial encounter (principal)
CPT/HCPCS: 99283

== ENCOUNTER 2017-05-06 19:48 | Inpatient (IN) ==
[2017-05-06 20:25] LABS: BASOPHILS # (AUTO) 0.1 K/uL (0-0.2); BASOPHILS % (AUTO) 0.5 % (0.0-3.0); EOSINOPHILS # (AUTO) 0.2 K/ul (0.0-0.7); EOSINOPHILS % (AUTO) 2.2 % (0.0-7.0); HEMOGLOBIN 12.6 g/dl (14.0-18.0); IMMATURE GRANULOCYTE % (AUTO) 0.6 % (0.0-5.0); LYMPHOCYTES # (AUTO) 1.2 K/uL (0.60-3.4); LYMPHOCYTES % (AUTO) 10.9 (10.0-50.0); MEAN CORPUSCULAR HEMOGLOBIN 27.6 pg (27.0-31.0); MEAN CORPUSCULAR HGB CONC 32.3 (31.8-35.4); MEAN CORPUSCULAR VOLUME 85.3 fl (80.0-94.0); MONOCYTES # (AUTO) 0.8 K/uL (0.4-2.0); NEUTROPHILS # (AUTO) 8.6 K/ul (2.0-6.9); NEUTROPHILS % (AUTO) 78.8; PLATELET COUNT 183 10^3/uL (140-440); RED BLOOD COUNT 4.57 10^6/ul (4.70-6.10); WHITE BLOOD COUNT 10.88 K/ul (4.2-10.2)
--- NOTE | 2017-05-06 20:43 | ED.PDOC ---
General ED Provider: Dr. BLANCHE HUERTA-ER Chief Complaint: Hand Pain/Injury Stated Complaint: i had an iv that got infected--i had an abscess in my wrist and the surgeon had to open it --leo been in the long-term--my wrist has been swollen for 2 days now and it hurts Time Seen by Physician: 20:42 Information Source: Patient, Family, Assisted Exam Limitations: No limitations Primary Care Provider: [facility] Nursing and Triage Documentation Reviewed and Agree: Yes Skin Complaint Exam - Skin/Soft Tissue Complaint/Exam Onset/Duration: 2 days Symptoms Are: Still present Timing: Constant Initial Severity: Mild Current Severity: Mild Location: left wrist Character: Reports: Swelling, Raised, Painful. Denies: Redness Aggravating: Reports: Touch Alleviating: Reports: None Associated Signs and Symptoms: Reports: Tenderness. Denies: Fever, Chills, Itching, Drainage, Bruising, Red streaks, Joint swelling Related History: Reports: Immunocompromised Recent Exposure to Others w/Similar Symptoms: No Joint Tenderness Present: No Differential Diagnoses: Abscess, Infection Review of Systems - Review Of Systems Constitutional: Reports: No symptoms Eyes: Reports: No symptoms Ears, Nose, Mouth, Throat: Reports: No symptoms Respiratory: Reports: No symptoms Cardiac: Reports: No symptoms GI: Reports: No symptoms : Reports: No symptoms Musculoskeletal: Reports: Joint pain, Joint swelling Skin: Reports: No symptoms Neurological: Reports: No symptoms Endocrine: Reports: No symptoms Hematologic/Lymphatic: Reports: No symptoms All Other Systems: Reviewed and Negative Past Medical History - Past Medical History Previously Healthy: No Endocrine: Reports: DM 2 Cardiovascular: Reports: Hypertension, CHF Respiratory: Reports: COPD Hematological: Reports: None Gastrointestinal: Reports: None Genitourinary: Reports: None Neuro/Psych: Reports: None Musculoskeletal: Reports: None Cancer: Reports: None - Surgical History General Surgical History: Reports: None - Family History Family History: Reports: None - Social History Smoking Status: Former smoker Hx Substance Use: No Alcohol Screening: None Lives: With family - Immunizations Tetanus Shot up to Date: Yes Physical Exam - Physical Exam Appearance: Well-appearing, No pain distress, Well-nourished Pain Distress: Mild Eyes: KD, EOMI, Conjunctiva clear ENT: Ears normal, Nose normal, Oropharynx normal Neck: Supple Respiratory: Airway patent, Breath sounds clear, Breath sounds equal, Respirations nonlabored Cardiovascular: RRR, Pulses normal, No rub, No murmur GI/: Soft, Nontender, No masses, Bowel sounds normal, No Organomegaly Musculoskeletal: Limited ROM Skin: Warm, Dry, Normal color Neurological: Sensation intact, Motor intact, Reflexes intact, Cranial nerves intact, Alert, Oriented Psychiatric: Affect appropriate, Mood appropriate Interpretation - Radiology Interpretation Radiology Interpretation By: Radiologist Radiology Results: Negative Physician Notification - Case Discussed Physician Notified: dr sharpe Time of Notification: 22:12 Critical Care Note - Critical Care Note Total Time (mins): 0 Course - Course Hematology/Chemistry: 05/06/17 20:15 05/06/17 20:15 Orders, Labs, Meds: Lab Review 05/06/17 20:15 WBC 10.88 H RBC 4.57 L Hgb 12.6 L Hct 39.0 L MCV 85.3 MCH 27.6 MCHC 32.3 RDW Coeff of [place] 15.1 H Plt Count 183 Immature Gran % (Auto) 0.6 Neut % (Auto) 78.8 Lymph % (Auto) 10.9 [place] % (Auto) 7.0 Eos % (Auto) 2.2 Baso % (Auto) 0.5 Immature Gran # (Auto) 0.1 Neut # 8.6 H Lymph # 1.2 [place] # 0.8 Eos # 0.2 Baso # 0.1 ESR 24 H Sodium 137 Potassium 3.8 Chloride 96 L Carbon Dioxide 31 Anion Gap 13.8 BUN 36 H Creatinine 1.30 H Estimated GFR (MDRD) 54.00 BUN/Creatinine Ratio 27.69 Glucose 159 H Uric Acid 11.7 H Calcium 9.1 Total Bilirubin 0.83 AST 13 L ALT 15 Alkaline Phosphatase 97 Total Protein 6.4 Albumin 3.3 L Globulin 3.1 Albumin/Globulin Ratio 1.06 Orders Category Date Time Status BLOOD CULTURE Stat LAB 05/06/17 20:15 Received C-REACTIVE PROTEIN Stat LAB 05/06/17 20:15 Received CBC W/ AUTO DIFF Stat LAB 05/06/17 20:15 Completed COMPREHENSIVE METABOLIC PANEL Stat LAB 05/06/17 20:15 Completed ESR Stat LAB 05/06/17 20:15 Completed PROCALCITONIN Stat LAB 05/06/17 21:15 Received URIC ACID Stat LAB 05/06/17 20:15 Completed Vital Signs: Temp Pulse Resp BP Pulse Ox 05/06/17 19:52 98.1 F 72 18 125/78 93 L Departure - Departure Time of Disposition: 22:13 Disposition: ADMITTED INPATIENT Discharge Problem: Left wrist pain Instructions: Wrist Injury (ED) Condition: Good Pt referred to PMD for follow-up: Yes Allergies/Adverse Reactions: Allergies indomethacin [From Indocin] Adverse Reaction (Verified 02/17/17 12:10) indomethacin sodium [From Indocin] Adverse Reaction (Verified 02/17/17 12:10) morphine Adverse Reaction (Verified 02/17/17 12:10) Penicillins Adverse Reaction (Verified 02/17/17 12:10) Home Medications: Ambulatory Orders Amlodipine Besylate [Norvasc] 5 mg PO DAILY 12/04/14 Cholecalciferol (Vitamin D3) [Vitamin D3] 5,000 unit PO DAILY 12/04/14 Cyanocobalamin (Vitamin B-12) [B-12] 100 mcg PO DAILY 12/04/14 Metformin HCl 500 mg PO BID 12/04/14 Omeprazole [Prilosec] 20 mg PO BIDAC 12/04/14 Tiotropium [place] [Spiriva] 1 cap IH DAILY 12/04/14 Atorvastatin Calcium [Lipitor] 80 mg PO DAILY 02/05/17 Clopidogrel Bisulfate [Plavix] 75 mg PO DAILY 02/05/17 Isosorbide Dinitrate 30 mg PO DAILY 02/05/17 Metoprolol Tartrate [Lopressor] 100 mg PO BID 02/05/17 Spironolactone [Aldactone] 25 mg PO DAILY 02/05/17 Acetaminophen 650 mg PO Q4HR PRN 05/06/17 Ascorbic Acid 500 mg PO BID 05/06/17 Bisacodyl 10 mg RC DAILY PRN 05/06/17 Budesonide 0.5 mg IH BID 05/06/17 Budesonide/Formoterol Fumarate [Symbicort 160-4.5 Mcg Inhaler] 1 puff IH BID Cephalexin [Keflex] 500 mg PO Q6HR 05/06/17 Docusate Sodium 100 mg PO Q12HR PRN 05/06/17 Furosemide [Lasix] 40 mg PO BID 05/06/17 Hydrochlorothiazide 25 mg PO DAILY 05/06/17 Hydrocodone/Acetaminophen [[place] 5-325 Tablet] 1 each PO Q4HR PRN 05/06/17 Insulin Aspart [Novolog Insulin] 100 unit SUBCUT DIRECTED 05/06/17 Ipratropium/Albuterol Neb [Duoneb] 1 vial NEB RTQ4H 05/06/17 Ipratropium/Albuterol Neb [Duoneb] 1 vial NEB RTQ4H PRN 05/06/17 Magnesium Hydroxide [Milk of Magnesia] 30 ml PO DAILY PRN 05/06/17 Polyethylene Glycol 3350 [Miralax] 17 gm PO DAILY 05/06/17 Prednisone 10 mg PO DAILYWM 05/06/17 Saccharomyces Boulardii [Florastor] 250 mg PO BID 05/06/17 Disposition Discussed With: Patient, Family
[2017-05-06 20:53] LABS: ALBUMIN 3.3 g/dL (3.4-5.0); ALBUMIN/GLOBULIN RATIO 1.06; ANION GAP 13.8; BILIRUBIN,TOTAL 0.83 mg/dL (0.00-1.20); BUN/CREATININE RATIO 27.69; CALCIUM 9.1 mg/dL (8.2-10.2); CREATININE 1.3 mg/dL (0.60-1.10); POTASSIUM 3.8 mmol/L (3.5-5.1); TOTAL PROTEIN 6.4 g/dL (5.8-8.1)
[2017-05-06 20:57] LABS: ERYTHROCYTE SEDIMENTATION RATE 24 mm/hr (0-15); ESR INTERNAL QC INTERNAL QC VALID
[2017-05-06] MEDS ORDERED: VANCOMYCIN 1 GM in SODIUM CHLORIDE 250 ML IV STA (22:15)
[2017-05-06] MEDS ORDERED: MILK OF MAGNESIA PO PRN (22:17)
[2017-05-06] MEDS ORDERED: TYLENOL PO PRN (22:17)
[2017-05-06] MEDS ORDERED: COLACE PO PRN (22:17)
[2017-05-06] MEDS ORDERED: DULCOLAX RC PRN (22:17)
[2017-05-06] MEDS ORDERED: NORCO 5-325 PO PRN (22:17)
[2017-05-06] MEDS ORDERED: INSULIN ASPART 100 UNIT SUBCUT SCH (22:30)
[2017-05-06] MEDS ORDERED: SODIUM CHLORIDE 1,000 ML IV SCH (22:30)
[2017-05-07 01:00] VITALS: BMI 37.0
[2017-05-07] MEDS ORDERED: NORCO 5-325 PO PRN (01:59)
[2017-05-07] MEDS ORDERED: DUONEB NEB SCH (02:00)
[2017-05-07] MEDS ORDERED: MILK OF MAGNESIA PO PRN (03:30)
[2017-05-07] MEDS ORDERED: INSULIN ASPART 100 UNIT SUBCUT SCH (03:30)
[2017-05-07] MEDS ORDERED: NON-FORMULARY MEDICATION (Acetaminophen [Pain Relief] 650 MG) PO PRN (03:30)
[2017-05-07] MEDS ORDERED: NON-FORMULARY MEDICATION (Docusate Sodium [Docusate Sodium] 100 MG) PO PRN ×22 (03:30)
[2017-05-07] MEDS ORDERED: DULCOLAX RC PRN (03:30)
[2017-05-07] MEDS ORDERED: DUONEB NEB ONE (04:41)
[2017-05-07] MEDS ORDERED: PULMICORT 0.5 MG/2 ML NEB ONE (04:41)
[2017-05-07 04:46] LABS: BASOPHILS # (AUTO) 0.1 K/uL (0-0.2); BASOPHILS % (AUTO) 0.7 % (0.0-3.0); EOSINOPHILS # (AUTO) 0.4 K/ul (0.0-0.7); HEMATOCRIT 36.9 % (42.0-52.0); HEMOGLOBIN 11.7 g/dl (14.0-18.0); LYMPHOCYTES # (AUTO) 1.4 K/uL (0.60-3.4); LYMPHOCYTES % (AUTO) 13.5 (10.0-50.0); MEAN CORPUSCULAR HEMOGLOBIN 27.1 pg (27.0-31.0); MEAN CORPUSCULAR HGB CONC 31.7 (31.8-35.4); MEAN CORPUSCULAR VOLUME 85.6 fl (80.0-94.0); MONOCYTES # (AUTO) 0.8 K/uL (0.4-2.0); MONOCYTES % (AUTO) 7.7 (0-10); NEUTROPHILS # (AUTO) 7.6 K/ul (2.0-6.9); NEUTROPHILS % (AUTO) 73.1; PLATELET COUNT 131 10^3/uL (140-440); RED BLOOD COUNT 4.31 10^6/ul (4.70-6.10); WHITE BLOOD COUNT 10.35 K/ul (4.2-10.2)
[2017-05-07] MEDS ORDERED: PRILOSEC ONE (04:52)
[2017-05-07] MEDS ORDERED: LASIX TAB ONE (04:52)
[2017-05-07 05:03] LABS: ALBUMIN/GLOBULIN RATIO 1.15; ANION GAP 15.7; BILIRUBIN,TOTAL 0.76 mg/dL (0.00-1.20); BUN/CREATININE RATIO 28.2; CALCIUM 8.8 mg/dL (8.2-10.2); CREATININE 1.17 mg/dL (0.60-1.10); POTASSIUM 3.7 mmol/L (3.5-5.1); TOTAL PROTEIN 5.6 g/dL (5.8-8.1)
[2017-05-07] MEDS: DUONEB NEB SCH ×4 (05:22→20:35)
[2017-05-07] MEDS: PULMICORT 0.5 MG/2 ML NEB SCH ×2 (05:22→20:45)
[2017-05-07] MEDS: LASIX TAB PO SCH ×2 (05:48→17:03)
[2017-05-07] MEDS: PRILOSEC PO SCH ×2 (05:48→17:03)
[2017-05-07] MEDS ORDERED: PRILOSEC PO SCH (06:30)
[2017-05-07] MEDS ORDERED: TYLENOL PO PRN (07:18)
[2017-05-07] MEDS ORDERED: COLACE PO PRN (07:19)
[2017-05-07] MEDS ORDERED: HUMALOG SUBCUT SCH ×3 (07:30→21:37)
[2017-05-07] MEDS ORDERED: PREDNISONE PO SCH ×2 (08:00)
[2017-05-07] MEDS: FLORASTOR PO SCH ×2 (08:35→21:03)
[2017-05-07] MEDS: NON-FORMULARY MEDICATION (Cyanocobalamin (Vitamin B-12) [Vitamin B-12] 1,000 MCG) PO SCH ×22 (08:35)
[2017-05-07] MEDS: ALDACTONE PO SCH (08:35)
[2017-05-07] MEDS: NORVASC PO SCH (08:36)
[2017-05-07] MEDS: VITAMIN D PO SCH (08:36)
[2017-05-07] MEDS: HYDROCHLOROTHIAZIDE PO SCH (08:36)
[2017-05-07] MEDS: IMDUR PO SCH (08:37)
[2017-05-07] MEDS: LIPITOR PO SCH (08:37)
[2017-05-07] MEDS: VITAMIN C PO SCH ×2 (08:37→21:03)
[2017-05-07] MEDS: PLAVIX PO SCH (08:37)
[2017-05-07] MEDS: MIRALAX PO SCH (08:38)
[2017-05-07] MEDS: LOPRESSOR PO SCH ×2 (08:38→21:03)
[2017-05-07] MEDS: SYMBICORT 160-4.5 MCG INHALER IH SCH ×2 (08:38→21:03)
[2017-05-07] MEDS: SPIRIVA IH SCH (08:39)
[2017-05-07] MEDS ORDERED: NON-FORMULARY MEDICATION (Cholecalciferol (Vitamin D3) [Vitamin D3] 5,000 UNIT) PO SCH ×44 (09:00)
[2017-05-07] MEDS ORDERED: FLORASTOR PO SCH (09:00)
[2017-05-07] MEDS ORDERED: HYDROCHLOROTHIAZIDE PO SCH (09:00)
[2017-05-07] MEDS ORDERED: SYMBICORT 160-4.5 MCG INHALER IH SCH (09:00)
[2017-05-07] MEDS ORDERED: CYANOCOBALAMIN 100 MCG PO SCH (09:00)
[2017-05-07] MEDS ORDERED: NORVASC PO SCH (09:00)
[2017-05-07] MEDS ORDERED: NON-FORMULARY MEDICATION (Atorvastatin Calcium [Lipitor] 80 MG) PO SCH ×44 (09:00)
[2017-05-07] MEDS ORDERED: NON-FORMULARY MEDICATION (Isosorbide Dinitrate [Isosorbide Dinitrate] 30 MG) PO SCH ×22 (09:00)
[2017-05-07] MEDS ORDERED: NON-FORMULARY MEDICATION (Metoprolol Tartrate [Metoprolol Tartrate] 100 MG) PO SCH (09:00)
[2017-05-07] MEDS ORDERED: NON-FORMULARY MEDICATION (Metoprolol Tartrate [Lopressor] 100 MG) PO SCH ×22 (09:00)
[2017-05-07] MEDS ORDERED: SPIRIVA IH SCH (09:00)
[2017-05-07] MEDS ORDERED: ALDACTONE PO SCH (09:00)
[2017-05-07] MEDS ORDERED: MIRALAX PO SCH (09:00)
[2017-05-07] MEDS ORDERED: VITAMIN C PO SCH (09:00)
[2017-05-07] MEDS ORDERED: PULMICORT 0.5 MG/2 ML NEB SCH ×2 (09:00)
[2017-05-07] MEDS ORDERED: LASIX TAB PO SCH (09:00)
[2017-05-07] MEDS ORDERED: PLAVIX PO SCH (09:00)
--- NOTE | 2017-05-07 15:50 | MRI ---
EXAM: MRI of the left wrist without contrast COMPARISON: Left wrist radiographs 05/06/2017. CT of the left hand 02/17/2017. HISTORY: Left wrist pain and swelling. Staphylococcus infection, possible osteomyelitis. TECHNIQUE: Multiplanar noncontrast MR images of the left wrist were acquired using a 1.2 Chiqui magn et. Several of these submitted sequences are significantly limited by patient motion artifact, limit ing anatomic detail. FINDINGS: There are moderate-sized radiocarpal, midcarpal and distal radioulnar joint effusions wit h synovial thickening/proliferation most extensive at the radiocarpal and midcarpal joints. There i s marrow edema throughout the carpus but most extensive involving the capitate, hamate, scaphoid and triquetrum which may be reactive in nature. Suspected small cortical erosions in particular at the level of the capitate, triquetrum and hamate. This may represent a septic joint with osteomyelitis given the clinical history though similar findings could be seen in the setting of an inflammatory arthritis such as rheumatoid arthritis. Sclerosis and abnormal morphology of the lunate consistent with osteonecrosis. There is abnormal widening of the scapholunate interval with a high-grade tear of the scapholunate ligament with some proximal migration of the capitate related to scapholunate ad vanced collapse. There is rotation of the scaphoid as well as dorsal tilt of the lunate. Diffuse j oint space narrowing at the intercarpal and radiocarpal articulations. Joint space narrowing at the carpometacarpal articulations. No evidence of a full-thickness tear of the lunotriquetral ligament on this non arthrographic study. Intrasubstance degeneration of the triangular fibrocartilage disc . Focal abnormal signal involving the peripheral portion of the triangular fibrocartilage complex a t its ulnar styloid attachment which may represent a small tear at that site. Dorsal subluxation of the ulna at the distal radioulnar joint with degenerative changes at that level. Diffuse muscle atrophy. Subcutaneous edema throughout the wrist which is most extensive along the d orsal and volar aspect of the wrist. Tenosynovitis involving the dorsal extensor tendons most prono unced at the level of the extensor digitorum extensor carpi radialis longus/brevis. Extensor carpi ulnaris tendinosis with chronic partial tear with some anteromedial subluxation of the tendon relati ve to the distal ulna. Trace fluid extending along the flexor digitorum tendon sheaths at the level the carpal tunnel. Discontinuity of the flexor retinaculum suggesting sequela of previous surgical release. There is enlargement and hyperintense signal involving the median nerve at that level and correlation for signs of median neuropathy is recommended. 4 x 4 mm T2 hyperintense lesion along t he volar and ulnar aspect of the median nerve at the level of the carpometacarpal joints which may r epresent a small hematoma or abscess. Additional 6 x 4 mm T2 hyperintense collection deep to the fle xor pollicis longus had a position 2.3 cm proximal to the radiocarpal articulation. Thinner compone nt of the fluid collection extending along the superficial aspect of the tendon at the site of previ ous surgery. Low-level intramuscular edema. IMPRESSION: 1. Subcutaneous edema throughout the wrist which is nonspecific but may represent cellulitis. 2. Marked degenerative changes of the wrist. 3. Moderate radiocarpal, midcarpal and distal radioulnar joint effusions with synovitis, nonspecifi c. Reactive marrow edema throughout the carpus with suspected erosions as described. These finding s may represent septic joint with osteomyelitis given the clinical history and correlation with aspi ration is recommended. Similar findings could be seen in the setting of an inflammatory arthritis s uch as rheumatoid arthritis. Consider labeled white blood cell study. 4. 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 Dorsal tilt of the lunate. 5. Tenosynovitis involving the dorsal extensor tendons with extensor carpi ulnaris tendinosis/parti al tear. 6. Findings suggesting previous carpal tunnel release. Small fluid collection overlying the median nerve and addition to small fluid collection adjacent the flexor pollicis longus which may represent abscess or hematoma. Thickening and hyperintense signal of the median nerve and correlation for signs of persistent media n neuropathy is recommended.
[2017-05-07] MEDS ORDERED: HUMALOG SUBCUT ONE (20:58)
[2017-05-07] MEDS: VANCOMYCIN 750 MG in SODIUM CHLORIDE 250 ML IV SCH (21:04)
[2017-05-08 04:33] LABS: BASOPHILS # (AUTO) 0.1 K/uL (0-0.2); BASOPHILS % (AUTO) 0.8 % (0.0-3.0); EOSINOPHILS # (AUTO) 0.4 K/ul (0.0-0.7); EOSINOPHILS % (AUTO) 3.9 % (0.0-7.0); HEMATOCRIT 35.4 % (42.0-52.0); HEMOGLOBIN 11.4 g/dl (14.0-18.0); IMMATURE GRANULOCYTE % (AUTO) 0.5 % (0.0-5.0); LYMPHOCYTES # (AUTO) 1.2 K/uL (0.60-3.4); LYMPHOCYTES % (AUTO) 11.4 (10.0-50.0); MEAN CORPUSCULAR HEMOGLOBIN 27.7 pg (27.0-31.0); MEAN CORPUSCULAR HGB CONC 32.2 (31.8-35.4); MEAN CORPUSCULAR VOLUME 85.9 fl (80.0-94.0); MONOCYTES # (AUTO) 0.8 K/uL (0.4-2.0); MONOCYTES % (AUTO) 7.4 (0-10); NEUTROPHILS # (AUTO) 7.7 K/ul (2.0-6.9); PLATELET COUNT 118 10^3/uL (140-440); RED BLOOD COUNT 4.12 10^6/ul (4.70-6.10); WHITE BLOOD COUNT 10.13 K/ul (4.2-10.2)
[2017-05-08 04:53] LABS: ALBUMIN/GLOBULIN RATIO 1.11; ANION GAP 14.2; BILIRUBIN,TOTAL 0.99 mg/dL (0.00-1.20); BUN/CREATININE RATIO 27.19; CREATININE 1.14 mg/dL (0.60-1.10); POTASSIUM 4.2 mmol/L (3.5-5.1); TOTAL PROTEIN 5.7 g/dL (5.8-8.1)
[2017-05-08] MEDS: DUONEB NEB SCH ×3 (05:07→20:49)
[2017-05-08] MEDS: PULMICORT 0.5 MG/2 ML NEB SCH ×2 (05:07→20:50)
[2017-05-08] MEDS: PRILOSEC PO SCH ×2 (05:36→17:30)
[2017-05-08] MEDS: LASIX TAB PO SCH ×2 (05:36→16:43)
[2017-05-08] MEDS: VANCOMYCIN 750 MG in SODIUM CHLORIDE 250 ML IV SCH ×2 (08:51→20:15)
[2017-05-08] MEDS: IMDUR PO SCH (08:52)
[2017-05-08] MEDS: LIPITOR PO SCH (08:52)
[2017-05-08] MEDS: ALDACTONE PO SCH (08:52)
[2017-05-08] MEDS: PLAVIX PO SCH (08:52)
[2017-05-08] MEDS: VITAMIN D PO SCH (08:53)
[2017-05-08] MEDS: LOPRESSOR PO SCH ×2 (08:53→20:17)
[2017-05-08] MEDS: VITAMIN C PO SCH ×2 (08:53→20:15)
[2017-05-08] MEDS: FLORASTOR PO SCH ×2 (08:54→20:16)
[2017-05-08] MEDS: HYDROCHLOROTHIAZIDE PO SCH (08:54)
[2017-05-08] MEDS: MIRALAX PO SCH (08:54)
[2017-05-08] MEDS: NORVASC PO SCH (08:54)
[2017-05-08] MEDS: NON-FORMULARY MEDICATION (Cyanocobalamin (Vitamin B-12) [Vitamin B-12] 1,000 MCG) PO SCH ×22 (08:55)
[2017-05-08] MEDS: SYMBICORT 160-4.5 MCG INHALER IH SCH ×2 (09:06→20:15)
[2017-05-08] MEDS: SPIRIVA IH SCH (09:07)
--- NOTE | 2017-05-08 09:39 | PN ---
DATE OF VISIT: 05/07/17 The patient was admitted last night, 05/06/17. The patient, today, is alert and had an MRI done. The MRI is abnormal and we will discuss that further with the radiologist tomorrow and I would talk to the Infectious Disease and maybe transfer the patient tomorrow, since he has an appointment with him this coming Saturday. The patient is alert, in no distress and smiling. He does not appear to be sick. He made a comment that the problem can probably wait until Saturday for his appointment. I did him that I would try to discuss this with the Infectious Disease tomorrow. VITAL SIGNS: Temperature 97.8, pulse 92, blood pressure 106/64, respiratory rate 16, nasal oxygen at 4 liters per minute. LUNGS: Has diminished breath sounds in both sides. No wheezing. No obvious rales. HEART: Normal sinus rhythm. ABDOMEN: No remarkable tenderness. EXTREMITIES: The left hand appears about the same as yesterday. The MRI of the left hand is abnormal. LABS: 05/07/17 showed essentially the same findings as yesterday. Moderate anemia, slightly higher white cell count 10,350. E GFR today is 61 and 54 on admission. Procalcitonin 0.07. Blood sugar 142. CONDITION: Guarded. MTDD
--- NOTE | 2017-05-08 10:51 | HP ---
CHIEF COMPLAINT: Swelling of the left hand and wrist area. HISTORY OF PRESENT ILLNESS: The patient had cellulitis and abscess of the left hand and was admitted to [facility] on 04/19/17. The patient had incision and drainage by an orthopedic surgeon and was intubated after the incision and drainage and debridement of the abscess. He was in intensive care unit for several days and was final extubated. The bacteria isolated was Methicillin sensitive Staph aureus. The patient was extubated on 04/24/17. He was treated with Vancomycin intervenously while in the hospital. The patient post extubation was using 10 liters of oxygen by Venti-mask. The patient's saturation was described as low 90's. The patient continued to improved and was discharged to the [facility]. The patient had to no PCP and I was asked if I will and since I had seen this patient I did accept the patient into my service. The patient was placed on Keflex 500mg four times a day. The patient yesterday did complain of sensation of swelling of the left hand although there was no redness it was slightly warm to touch and the patient was afebrile and no significant pain. I did go to the [facility] and examined the hand and indeed it is swollen compared to the right. I did advise the patient to be sent to the emergency room for further examined and to decided further treatment. This patient has an appointment with the ID doctor this coming Saturday according to the patient. PAST PERSONAL HISTORY: COPD, Severe Uncontrolled diabetes mellitus, non insulin dependant Chronic respiratory failure, on chronic oxygen home therapy at 4 liters per minute History of obstructive sleep apnea secondary to morbid obesity Elevated BMI Anemia Chronic diastolic heart failure Chronic hypertensive disorder Dyslipidemia Chronic Vitamin D deficiency Coronary artery disease FAMILY HISTORY: The patient's family history is significant for CHF. Father had lung cancer. SOCIAL HISTORY: The patient is and resides with his . He stopped smoking some years ago. He does not drink any alcoholic beverages. MEDICATIONS: Lipitor 80mg daily DUONEB one nebulizer Q 4 hours Lasix 40mg twice a day Plavix 75mg daily Vitamin D3 5,000 internation units daily Vitamin B12 1,000mcg tablet daily Hydrocodone/Tylenol 5-325 one tablet Q 4 hours PRN Isosorbide mononitrate 30mg tablet daily Metoprolol Tartrate 100mg twice a day Metformin 500mg twice a day Aldactone 25mg daily Omeprazole 20mg twice a day Spiriva one capsule daily per inhaler Tylenol 650mg Q 4 hours PRN Vitamin C 500mg twice a day Budesonide 0.5mg per 2cc to be nebulized twice a day Bisacodyl suppository 10mg daily as needed Docusate Sodium 100mg Q 12 hours PRN Cephalexin 500mg Q 6 hours Florastor 250mg capsule twice a day Hydrochlorothiazide 25mg daily Magnesium Hydroxide (Milk of Magnesia) 30cc daily as needed Symbicort 160/4.5mcg one puff twice a day Novolog 100 units SUBCUT PRN Prednisone 10mg daily, not listed in his previous home medications as well as the insulin. These were the medications that were listed as home medication when he was admitted to [facility] consisting of Albuterol Sulfate 2.5mg per 3cc for Nebulization Q 6 hours Amlodipine 5mg daily Lipitor 80mg daily Vitamin D3 2,000 international units by mouth daily Plavix 75mg daily Vitamin B12 1,000mcg daily Hydrochlorothiazide 35mg daily Isosorbide 30mg daily Metformin 500mg twice a day Metoprolol Tartrate 100mg twice a day Prilosec 20mg twice a day Spiriva inhalers 80mcg two puffs twice a day and this needs to be rechecked since Spiriva is only given once a day and only one capsules Aldactone 25mg daily Symbicort 160/4.5mcg one puff twice a day Iron-24 400mg twice daily Tramadol 50mg twice a day. ALLERGIES: Morphine producing nausea Penicillin producing asthma and rash Indomethacin REVIEW OF SYSTEMS: CONSTITUTIONAL: The patient has no fever, no chills and no fatigue. BREAK OUT MAN: The patient is alert without any headaches or dizziness or ataxia. VISUAL: Denies any blurred vision, double vision or transient loss of vision. AUDITORY: The patient's hearing is adequate and denies any tinnitus, pain or drainage. RESPIRATORY: No significant cough, no history of hemoptysis. CARDIOVASCULAR: Denies any chest pain or chest oppression. GASTROINTESTINAL: Appetite appears to be good and no problems swallowing solids or liquids and no abdominal pain GENITOURINARY: Denies any pain or frequency or urination MUSCULOSKELETAL: This patient has swelling of the left hand with previous incision and drainage because of abscess. No significant pain and no redness. INTEGUMENT: Denies any rash or pleuritis ENDOCRINE: The patient has history of diabetes mellitus type two but no polyuria or polydipsia HEMATOLOGIC: Denies any history fo prolonged bleeding PSYCHIATRIC: Affect is normal. This patient has significant respiratory problems although he doesn't have hemoptysis but he is on chronic oxygen therapy using 4 liters of oxygen per minute. He also had respiratory failure on his recent admission on 04/19/17 at [facility] in [place]. PHYSICAL EXAMINATION: GENERAL: The patient is a 72 year old male who is alert, oriented time four. Not dyspneic or tachypneic with nasal oxygen. He is complaining of swelling of the left hand. It feels swollen to him. There is no redness, some tenderness but no drainage. It is slightly warm to touch. The patient was seen at the emergency room and subsequently admitted to this hospital for further studies and possible transfer to the [place] doctor in [place]. VITAL SIGNS: Temperature 98.1at 7:52pm, pulse 72, blood pressure 125/78, respiratory rate 18, oxygen saturation 93% at 4 liters. He is 5'6 with 216 pounds, BMI 37.1. He does not appear ill. HEAD: Unremarkable FACE: Symmetrical and equal with no facial weakness and no significant tenderness to palpation under pressure in the frontal maxillary sinus areas. EYES: Pupils equal/reactive to light. Conjunctivae not pale. Sclerae not icteric. MOUTH: Unremarkable THROAT: No inflammation, tumors or exudate. NECK: No masses. No bruit. No tenderness. No rigidity. CHEST: Symmetrical and equal with good expansion LUNGS: Breath sounds are heard in both sides. Diminished. No obvious rales. HEART: Audible and regular with good tones. No murmurs. ABDOMEN: Protuberant. Soft. No remarkable tenderness. No guarding. Bowel sounds are active. EXTERNAL GENITALIA: Not examined RECTAL: Not performed LOWER EXTREMITIES: Symmetrical and equal. Skin is dry. Ankle edema is present. UPPER EXTREMITIES: Asymmetrical with the patient's left hand much thicker then the right. It seems to be quite fluctuant. There is some tenderness but not severe. There is no redness. ASSESSMENT: 1. Posterior abscess left hand post incision and drainage with possible recurrence and maybe osteomyelitis PLAN: 1. Vancomycin 1,000mg twice a day per consultation with PharmD 2. Awaiting MRI results 3. After discussing with the MRI results that this patient's case would be discussed with the infectious disease doctor in [place] or [place]. TANIA
[2017-05-08 14:39] LABS: ABG PCO2 39.1 mmHg (35-45)
[2017-05-08 14:42] LABS: ABG BASE EXCESS 6 (-2.0-2.0); ABG HCO3 29.1 (22.0-26.0); ABG TCO2 30 (22.0-28.0)
--- NOTE | 2017-05-08 15:43 | DI ---
EXAM: Two-view chest HISTORY: Shortness of breath TECHNIQUE: Frontal and lateral views of the chest were obtained. FINDINGS: The heart is normal size. Lungs are clear. The pulmonary vasculature appears normal. IMPRESSION: No active cardiopulmonary disease.
--- NOTE | 2017-05-08 15:45 | DI ---
EXAM: Left wrist three views HISTORY: Pain and swelling, recent surgery FINDINGS / IMPRESSION: No comparison. Bones appear severely demineralized. There is diffuse arthr opathy most apparent at the radiocarpal and first carpal-metacarpal joints. No acute fracture is se en. Joints are grossly intact. See also same day left hand series report.
--- NOTE | 2017-05-08 15:46 | DI ---
EXAM: LEFT HAND THREE VIEWS HISTORY: Pain and swelling, recent surgery FINDINGS / IMPRESSION: No comparison. Bones appear severely demineralized. There is diffuse arthr opathy most apparent probably at the first carpal-metacarpal joint, moderate. No acute fracture is identified. 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 Soft tissue swelling at th e distal aspect of the fourth digit is suggested with no obvious gas collection. Demineralization l imits the exam although no well-defined bony destruction is identified. If osteomyelitis is of clin ical concern, a nuclear medicine consultation or MRI is recommended.
[2017-05-08] MEDS ORDERED: LASIX IVP STA (16:26)
[2017-05-08] MEDS ORDERED: SOLU-CORTEF 250 MG IVP STA (16:26)
[2017-05-08] MEDS ORDERED: GLUCOPHAGE PO SCH (17:30)
[2017-05-08] MEDS ORDERED: LOVENOX ONE (17:38)
[2017-05-08] MEDS: LOVENOX SUBCUT SCH ×2 (17:42→20:17)
--- NOTE | 2017-05-08 19:17 | CT ---
Exam: CT angiography of the chest History: Elevated D-dimer and shortness of breath Technique: [address] of the chest utilizing CT angiography protocol. Multiplanar and th ree-dimensional reformations were performed. FINDINGS: Technically adequate for evaluation of pulmonary arteries and aorta. Pulmonary thrombus of the right main and right lower lobe. Thrombus also noted in the right upper lobe. No thrombus s een on the left. Lung windows show moderate to severe emphysematous change. No infiltrative opacit ies are seen. Atherosclerotic calcification of the aorta without aneurysm. No pathologic lymph nod e enlargement or abundance of mediastinum. No acute findings of the chest wall soft tissues or bony thorax. No acute findings of the upper abdomen. Impression: 1. Critical result: Pulmonary artery thrombus of the right main, right upper and right lower lobes . 2. Emphysema Discussed with the thin ordering physician at 1912 hours Central time.
[2017-05-08] MEDS ORDERED: LOPRESSOR PO STA (20:06)
[2017-05-08 21:39] VITALS: BP 94/61; TEMP 96.4
--- NOTE | 2017-05-09 09:12 | PN ---
DATE OF VISIT: 05/08/17 SUBJECTIVE: The patient is a 72 year old male who was admitted to the hospital on 05/06/17 because of swelling on the left hand. This patient last 04/19/17 was at [facility] and did undergo incision and drainage of abscess of the left hand. The culture did grow MSSA, it was treated with Vancomycin. The patient was discharged after about two weeks in the hospital. The patient on 05/06/17 at the detention complained of swelling of the left hand with some discomfort. The left hand was slightly warm and I did go to the detention to look at it and decided to send him to the emergency room. He was evaluated by Dr. Davis and subsequently admitted. The patient was placed on Vancomycin 1gram Q 8 hours. The patient was doing well and gave me the number to Dr. Evangelista and I did proceed to call his office, however he was not there today and will be back tomorrow. He told me that if he is not going to see the doctor he would go back to the detention and continue the medication. This patient was placed on Keflex 500mg Q 6 hours from the time of discharge from [facility]. The patient's oxygen saturation at 4 liters was still satisfactory at 2:00pm however on or about 5:00pm the patient had a drop in his oxygen saturation with shortness of breath. I asked for a consultation from Dr. Martinez, Superintendent Division and he examined the patient and ordered a D-Dimer, intervenous Lasix, Steroid injection plus Lovenox 100mg SUBCUT. The CT was done this evening at my insistence and the patient does have a right main former artery thrombosis as well as right upper and lower lobe. I did convey to the patient the findings and also with his . I told him that I would like to seek transfer to facility, I mentioned [facility] and he objected to and will never go to [facility], [place] and he asked me why not back to the [facility] in [place]. I told him that I would try and indeed I tried and I talked to the doctor and the doctor would not accept the patient into his services since the only thing that he needs is what we can already do meaning anticoagulate him. I did him that this patient is scheduled to see also the Infectious Disease in two days, this coming Saturday and he has some recurrence of the swelling of the left hand that was incised and drained. Again I was not able to convince him that the patient should be transferred to his services. I did convey this to the patient and his . I told them I would try [facility] and they were agreeable and I did talk to the Nurse Practitioner post adoption coordinator for the doctor and recounted the history and also the significant comorbidities of this patient. She accepted the patient into the services into Dr. Haskins and this patient will then be transferred to [facility]. I did talk to the patient and his and his children. One mentioned about going to the [facility] in [place]. I did tell them that I am not for sure if [place] will accept him but we certainly can try that but he already has a place to go in [place]. After I had given them that information there was no mention of going to [place] anymore. This patient will then be transferred to [facility] under the services of Dr. Haskins. DIAGNOSIS: 1. Acute pulmonary edema, right main pulmonary artery and right upper and lower branches The patient was alert and responsive on 50% FiO2. Oxygen saturation was 95 or 96. The last one before that CTA was 88. LUNGS: Rales in both lung gillette somewhat more in the left lower base. Less than the right and there is no wheezing HEART: Audible and regular CONDITION: Stable at the time of transfer to [facility]. TANIA
--- NOTE | 2017-05-09 09:32 | PN ---
DATE OF VISIT: 05/08/[address] JIANG'S OFFICE SUBJECTIVE: The patient when I made rounds this morning provided me with the number of Dr. Jiang. He is an infectious disease specialist. Mr. Regan has an appointment with him this coming from Saturday in the morning. I called the office and the unit receptionist had answered and told me that Dr. Jiang is in the office today he is actually out of town and will not be back until tomorrow. I did tell him the reason for what I am calling for and also confirmed that Mr. Regan has an appointment this coming Saturday and indeed he has. Told him that I would like to talk to him since Mr. Regan's hand had became to swell again although the swelling seems to be less today with the medication. I left my phone number, cell phone and she told me that she will get this phone to Dr. Jiang and that he may call me with regards to my call. The patient today is alert and cheerful. LUNGS: Clear to auscultation with diminished breath sounds HEART: Normal sinus rhythm EXTREMITIES: Left hand swelling seemed to be less and it is not as warm as it was on the day of admission. I had review the MRI the the radiologist today and pointed the area of fluid collected about 4mm in size. Not able to determine osteomyelitis. There is some suggested on bone destruction. I have the history fo the radiologist with regards to his left hand. He will continue the Vancomycin for now and we will see what tomorrow brings. We will send him back to the [facility] if they are able to give the Vancomycin if not we may have to give him two today. I hope to get in touch with Dr. Jiang tomorrow and discuss the case. TANIA
--- NOTE | 2017-05-09 13:38 | CONS ---
DATE OF CONSULTATION: 05/08/17 REASON FOR CONSULTATION: Severe hypoxemia of sudden onset. HISTORY OF PRESENT ILLNESS: 72-year-old white male was hospitalized with wrist pain. The patient has cellulitis and he is being treated with IV Vancomycin. The patient was short of breath. His oxygen saturation was noted to be in the mid 80s. His blood gases at that time revealed p02 of 49, pc02 of 39, pH 7.38 with 87% saturation. The patient's chest x-ray done STAT showed clear lungs. I was called on consultation. The patient's BNP was already ordered. I ordered a D. dimer, which was reported as more than 2,000. So to rule out pulmonary embolism, the patient underwent PE protocol and CT angiogram which revealed large thrombus in the main pulmonary artery. REVIEW OF SYSTEMS: CONSTITUTIONAL: Weakness and fatigue. No night sweats. No fever or chills. HEENT: Eyes: No visual changes. No eye pain. No eye discharge. ENT: No runny nose. No epistaxis. No sinus pain. No sore throat. No odynophagia. No ear pain. No congestion. RESPIRATORY: Shortness of breath. No distress. No cough. No hemoptysis. CARDIOVASCULAR: No angina symptoms. No CHF symptoms. No atypical chest pain for CAD. No palpitations. Shortness of breath on minimal exertion. No PND, no orthopnea. GASTROINTESTINAL: Appetite okay. No abdominal pain. No nausea or vomiting. No diarrhea or constipation. No hematemesis. No hematochezia. GENITOURINARY: No urgency. No frequency. No dysuria. No hematuria. No obstructive symptoms. No discharge. No pain. No significant abnormal bleeding. MUSCULOSKELETAL: No musculoskeletal pain. No joint swelling. NEUROLOGICAL: No headache. No neck pain. No syncope. No seizures. No dizziness. PSYCHIATRIC: Not anxious. No depression. No suicidal thoughts. No homicidal thoughts. SKIN: No rash. No lesions. No wounds. ENDOCRINE: No unexplained weight loss. No weight gain. HEMATOLOGIC/LYMPHATIC: No anemia. No purpura. No petechiae. No prolonged or excessive bleeding. No palpable lymph nodes. MEDICATIONS: 1. Acetaminophen 650 mg p.o. daily 2. Amlodipine 5 mg p.o. daily 3. Atorvastatin 80 mg p.o. daily 4. Budesonide/Formoterol one puff twice a day 5. Keflex 500 mg q.6 for hand infection 6. Clopidogrel 75 mg p.o. daily 7. Lasix 40 mg p.o. daily 8. Hydrochlorothiazide 25 mg p.o. daily 9. Ipratropium/Albuterol (Duoneb) 1 vial nebs q.6hr p.r.n. 10. Sorbitrate 30 mg p.o. daily 11. Metformin 500 mg p.o. twice a day 12. Metoprolol 100 mg p.o. twice a day 13. Prilosec 20 mg p.o. twice a day 14. Prednisone 10 mg p.o. daily 15. Spironolactone 25 mg p.o. daily 16. Spiriva one capsule p.o. daily ALLERGIES: INDOMETHACIN, MORPHINE, PENICILLIN PAST MEDICAL/SURGICAL HISTORY: 1. History of severe chronic lung disease 2. Hypertension 3. Diabetes mellitus 4. Dyslipidemia SOCIAL/PERSONAL/FAMILY HISTORY: The patient is , resides with his . He stopped smoking several years ago. No alcohol abuse. Several family members in the room and are all concerned. The patient is being transferred to [facility]. LABS: Hemoglobin 11.4, hematocrit 35, WBC 10,000, normal differential. Creatinine 1.1 , BUN 31, potassium 4.2. PHYSICAL EXAMINATION: GENERAL: The patient is oriented to time, place and person. VITAL SIGNS: Temperature 97.2, pulse 80, respiratory rate 24, BP 90/54, pulse ox 96% on room air this morning. HEENT: Head normocephalic, atraumatic. Eyes: Extraocular muscles are intact. Pupils are equal, round and reactive to light and accommodation. Ears: No lesions. Nose appeared normal. Throat: No exudate or erythema. NECK: Supple. No JVP, no carotid bruit. No lymphadenopathy or thyromegaly. LUNGS: Decreased breath sounds. Clear to auscultation. Percussion note normal. Chest symmetrical. HEART: S1, S2, PMI not palpable. No murmurs. No cyanosis or clubbing. No ascites. Pulses: Dorsalis pedis and posterior tibial pulses +1 to +2 both sides. ABDOMEN: Protuberant. Soft. Nontender. Bowel sounds active. No CVA tenderness. No mass felt. EXTREMITIES: Left hand has cellulitis. Full range of motion of all extremities , equal. NEUROLOGIC: No focal deficit. Cranial nerves II through XII are grossly intact. No headache, no double vision or headache. SKIN: Not dry. Intact. Turgor - normal. LYMPHATIC: No palpable lymph nodes/no lymphedema. MUSCULOSKELETAL: Normal joints with no swelling. Muscle tone is normal. ASSESSMENT: 1. LEFT HAND HAS CELLULITIS 2. CORONARY ARTERY DISEASE 3. DIASTOLIC HEART FAILURE 4. ELEVATED BMI PLAN: 1. CT scan of the chest with pulmonary embolism protocol. 2. The patient is being transferred to [facility]. ASSESSMENT: 1. ACUTE PULMONARY EMBOLISM INVOLVING MAIN PULMONARY ARTERY WITH SEVERE HYPOXEMIA WITH RESPIRATORY FAILURE. 2. LEFT HAND POSTERIOR ABSCESS TREATED WITH VANCOMYCIN. 3. CORONARY ARTERY DISEASE. 4. CHRONIC LUNG DISEASE. 5. DYSLIPIDEMIA. 6. OBESITY. 7. DIABETES MELLITUS. RECOMMENDATION: 1. Lovenox 1 mg/kg - please use pulmonary embolism protocol for Lovenox dose. 2. Elevate the legs. 3. Venti Mask 50%. 4. Attending has already made arrangements to transfer the patient to one of the [facility]. TANIA
--- NOTE | 2017-05-21 10:33 | DS ---
TRANSFERRED TO [facility] PATIENT IDENTIFICATION: 72 year old male was admitted on 05/06/2017 via the emergency room because of swollen hand left side. This patient was seen at the [facility] in [place] on 04/19/2017 from the [place] because of swelling of the left hand with a diagnosis of abscess and then treated with incision and drainage by an orthopedic surgeon. The patient subsequent to the drainage developed respiratory failure and was intubated and kept in the Intensive Care Unit for the next four to five days under a respiratory. The patient was weaned and was extubated and was able to recover and from then discharged on 05/02/2017 to [facility]. The patient, however, on the day of admission to the emergency room and then subsequently to the hospital, did complain of swelling of the left hand. I was contacted by the nurse and I did go to the care home and examined the patient. I did instruct the care home to send him to the emergency room for further evaluation and studies. HOSPITAL COURSE: X-rays of the left hand showed bones severely demineralized, diffuse arthropathy most apparent at the first carpal-metacarpal joint. No acute fractures noted. Soft tissue swelling at the distal aspect of the fourth digit is suggested with no obvious gas collection. No well defined bony destruction is identified. Recommend nuclear studies or MRI for ruling out osteomyelitis. X-ray of the left wrist showed the same findings with the left hand. MRI of the left wrist showed subcutaneous edema throughout the wrist which is nonspecific, but may represent cellulitis. Marked degenerative changes of the wrist, moderate radiocarpal, midcarpal and distal radioulnar joint effusions with synovitis. Reactive bone marrow edema throughout the carpus with suspected erosions. These findings may represent septic joint with osteomyelitis given the clinic history. 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 Small fluid collection overlying the median nerve and additional fluid collection adjacent to the flexor pollicis longus which may be abscess or hematoma. I did call the infectious disease doctor's office, Dr. Evangelista, but he was not at the office on Saturday. He will be back and I left my phone number since the lady that answered me told me that she will try to get Dr. Evangelista to give me a call. The patient was doing well until the early afternoon when he developed some shortness of breath. Chest x-ray showed no acute cardiopulmonary disease on 05/08/2017. I had asked for Dr. Martinez, Facilities Maintenance Worker, to see the patient and he ordered a D-Dimer, as well as he gave the patient IV Furosemide instead of oral, which he had been receiving twice a day. He also ordered steroid injection. The D-Dimer was elevated and CTA was ordered and performed. CTA showed thrombosis of the right main pulmonary artery , right upper and lower lobes. Emphysema also was noted. The patient was placed on 50% Ventimask and felt better. He was receiving 4 liters of nasal oxygen, which he had been doing that for some time before his hospitalization. The oxygen saturation at 50%, FIO2 was 92%. I did advise the patient, as well as the , that I would like to transfer him to another facility. I did mention [facility] and he does not want to go to [facility]. He would like to go back to [place] or [place]. I told that I would try to get in touch with them with regards to the possible transfer. I had talked to the Hospitalist and the Hospitalist had informed me that he would not accept the patient into his services since we could give him and anticoagulant medication here as well as he can over at his facility. I had advised the Hospitalist at [facility] that this patient has a significant comorbid condition and that he was there confined for about 13 days and was intubated about 5 days out of the 13. He again informed me that he could not do anything more than what I can do, give him and anticoagulation and I told him that the patient had already received 100 mg of Lovenox subcutaneously. This patient also prior to this episode had been on Plavix already and had been on for some time. Again, this was not successful, so I had informed the patient, as well as the family and I told them that I would try [facility] if they would accept him. I was able to get in touch with the [facility] provider and did discuss this with the nurse practitioner and she accepted the patient into the services of Dr. Haskins. I did come back and told the patient that [facility] accepted him and that we will transfer him to [facility]. A member of the family mentioned about going to [facility]. I did inform them that we would still have to talk to the [place] and see if they would accept him there. Nobody insisted that I would talk to the [place] or transfer him there and so this patient is being transferred to [facility] under the services of Dr. Haskins. The patient at the time of transfer informed me that he is feeling better and still using 50% FIO2. LUNGS: He does have rales in both lung gillette, a bit more on the left than the right. He also has basal and no expiratory wheezing. HEART: Audible with good tones. VITAL SIGNS: At 9:39 P.M. showed a temperature of 96.4, pulse 76, blood pressure 94/61, respiratory rate 19, oxygen saturation 89 at 50% Venturi. This patient was receiving Vancomycin 1 gram every 12 hours for the left hand swelling, probably with osteomyelitis. The diagnosis had not been confirmed. FINAL DIAGNOSES: 1. 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 INCREASING DESATURATION, PROBABLY SECONDARY TO THE PULMONARY ARTERY THROMBOSIS 3. HISTORY OF ABSCESS LEFT HAND, POST INCISION AND DRAINAGE WITH RECURRENT SWELLING-MSSA, TREATED WITH VANCOMYCIN WHILE IN THIS FACILITY FROM 05/06 TO . 4. CHRONIC OBSTRUCTIVE PULMONARY DISEASE, SEVERE 5. CHRONIC RESPIRATORY FAILURE 6. OBSTRUCTIVE SLEEP APNEA 7. PERSISTENT ELEVATED BMI 8. ANEMIA 9. HISTORY OF DIASTOLIC HEART FAILURE 10. HYPERTENSION 11. VITAMIN D DEFICIENCY 12. CORONARY ARTERY DISEASE 13. DIABETES MELLITUS TYPE II PROGNOSIS: [facility]ed. [facility]
== END 2017-05-08 21:43 | DRG 175 ==
LOC: ED 19:48 → MEDSURG B 23:55
PROVIDERS: ADMIT General Practice; ATTEND General Practice
DX: I26.99 Other pulmonary embolism without acute cor pulmonale (principal); J81.0 Acute pulmonary edema; J96.10 Chronic respiratory failure, unspecified whether with hypoxia or hypercapnia; I50.32 Chronic diastolic (congestive) heart failure; R06.02 Shortness of breath; M25.532 Pain in left wrist; M25.432 Effusion, left wrist; J44.9 Chronic obstructive pulmonary disease, unspecified; G47.33 Obstructive sleep apnea (adult) (pediatric); R63.8 Other symptoms and signs concerning food and fluid intake; D64.9 Anemia, unspecified; I10 Essential (primary) hypertension; E53.8 Deficiency of other specified B group vitamins; I25.10 Atherosclerotic heart disease of native coronary artery without angina pectoris; E11.9 Type 2 diabetes mellitus without complications; Z99.81 Dependence on supplemental oxygen; Z87.2 Personal history of diseases of the skin and subcutaneous tissue; Z87.891 Personal history of nicotine dependence; Z79.01 Long term (current) use of anticoagulants; Z79.899 Other long term (current) drug therapy; Z79.84 Long term (current) use of oral hypoglycemic drugs
CPT/HCPCS: 36415; 80053; 82803; 82962; 83880; 84145; 84550; 85025; 85379; 85651; 86140; 87040; 87081; 93005; 93010; 94640; 96365; 99284

== ENCOUNTER 2017-05-08 21:47 | Outpatient (CLI) ==
[2017-05-07 01:00] VITALS: BMI 37.0
== END 2017-05-08 21:48 | disposition home or self-care (01) ==
LOC: AMBL 21:47
PROVIDERS: ATTEND Emergency Medicine
DX: I26.99 Other pulmonary embolism without acute cor pulmonale (principal); R06.02 Shortness of breath

== ENCOUNTER 2018-06-12 21:42 | Emergency (ER) | payer OTHER ==
[2018-06-12] MEDS ORDERED: DUONEB NEB STA (21:46)
[2018-06-12] MEDS ORDERED: SOLU-MEDROL 125 MG IVP STA (21:48)
[2018-06-12 21:55] VITALS: TEMP 98.3; BMI 34.4
[2018-06-12 22:04] VITALS: BP 107/73
[2018-06-12] MEDS ORDERED: XOPENEX 1.25 MG NEB STA (22:13)
--- NOTE | 2018-06-12 22:17 | DI ---
EXAM: AP single view of the chest. HISTORY: Shortness of breath. FINDINGS: The bones are unremarkable. The cardiac silhouette is enlarged. The pulmonary vasculature is within normal limits. The costophrenic angles are clear. No infiltrate or consolidation. Impression: Cardiomegaly.
--- NOTE | 2018-06-12 23:02 | ED.PDOC ---
General ED Provider: Dr. KEZIA ARANA Chief Complaint: Shortness of Air Stated Complaint: Patient is a 73 year old male who having shortness of breath this evening, had a Breathing treatment of Duoneb at 5 pm but still did not feel better. He then called his grand daughter to tell her his breathing was worse. She then called the ambulance. He took two Nitros for chest pressure En- route he got another Duoneb. Time Seen by Physician: 22:57 Mode of Arrival: Ambulance Information Source: Patient, Family, EMT [facility] Nursing and Triage Documentation Reviewed and Agree: Yes Does patient meet sepsis criteria?: No System Inflammatory Response Syndrome: Resp >20/Minute Sepsis Protocol: For patient's 13 years and over: Temp is 96.8 and below OR 101 and greater Pulse >90 BPM Resp >20/minute Acutely Altered Mental Status Are patient's symptoms suggestive of a new infection, such as: -Pneumonia -Skin, Soft Tissue -Endocarditis -UTI -Bone, Joint Infection -Implantable Device -Acute Abdominal Infection -Wound Infection -Meningitis -Blood Stream Catheter Infection -Unknown Review of Systems - Review Of Systems Constitutional: Reports: No symptoms Eyes: Reports: No symptoms Ears, Nose, Mouth, Throat: Reports: No symptoms Respiratory: Reports: Short of air, Wheezing Cardiac: Reports: Chest pain GI: Reports: No symptoms : Reports: No symptoms Musculoskeletal: Reports: No symptoms Skin: Reports: No symptoms Neurological: Reports: No symptoms Endocrine: Reports: No symptoms Hematologic/Lymphatic: Reports: No symptoms All Other Systems: Reviewed and Negative Past Medical History - Past Medical History Previously Healthy: No Endocrine: Reports: DM 2 Cardiovascular: Reports: Hypertension, CHF Respiratory: Reports: COPD Hematological: Reports: None Gastrointestinal: Reports: None Genitourinary: Reports: None Neuro/Psych: Reports: None Musculoskeletal: Reports: None Cancer: Reports: None - Surgical History General Surgical History: Reports: None - Family History Family History: Reports: None - Social History Smoking Status: Former smoker Hx Substance Use: No Alcohol Screening: None - Immunizations Tetanus Shot up to Date: Yes Physical Exam - Physical Exam Appearance: Ill-appearing Ill-appearing: Severe Neck: Supple Respiratory: Breath sounds diminished Cardiovascular: RRR, Pulses normal, No rub, No murmur GI/: Soft Musculoskeletal: Normal strength, ROM intact, No edema, No calf tenderness Skin: Warm, Dry Neurological: Sensation intact, Alert, Oriented Psychiatric: Anxious Re-Evaluation - Re-Evaluation Time of Re-Evaluation: 23:03 Status: Improved (sat 93% ) Critical Care Note - Critical Care Note Total Time (mins): 50 Course - Course Hematology/Chemistry: 06/12/18 22:04 06/12/18 22:04 Orders, Labs, Meds: Lab Review 06/12/18 06/12/18 06/12/18 21:46 22:04 22:04 WBC 8.31 RBC 5.35 Hgb 12.0 L Hct 40.6 L MCV 75.9 L MCH 22.4 L MCHC 29.6 L RDW Coeff of Niurka 16.9 H Plt Count 237 Immature Gran % (Auto) 0.1 Neut % (Auto) 63.2 Lymph % (Auto) 16.5 [place] % (Auto) 8.8 Eos % (Auto) 10.3 H Baso % (Auto) 1.1 Immature Gran # (Auto) 0.0 Neut # (Auto) 5.3 Lymph # (Auto) 1.4 [place] # (Auto) 0.7 Eos # (Auto) 0.9 H Baso # (Auto) 0.1 Puncture Site Lbrach O2 Saturation 68.0 L ABG pH 7.407 ABG pCO2 34.1 L ABG pO2 35.0 L* ABG HCO3 21.5 L ABG Total CO2 23 ABG Base Excess -3 L Tim Test + O2 Delivery Device Simple mask Oxygen Liter Flow 10.00 FiO2 % 60.0 Sodium 135 L Potassium 4.5 Chloride 101 Carbon Dioxide 22 L Anion Gap 16.5 BUN 34 H Creatinine 1.36 H Estimated GFR (MDRD) 52.00 BUN/Creatinine Ratio 25.00 Glucose 90 Lactic Acid Calcium 9.8 Total Bilirubin 0.6 AST 24 ALT 32 Alkaline Phosphatase 131 H Total Creatine Kinase 33 Troponin I 0.0170 B-Natriuretic Peptide Total Protein 7.0 Albumin 3.2 L Globulin 3.8 Albumin/Globulin Ratio 0.84 Procalcitonin 06/12/18 06/12/18 06/12/18 22:04 22:04 22:04 WBC RBC Hgb Hct MCV MCH MCHC RDW Coeff of Niurka Plt Count Immature Gran % (Auto) Neut % (Auto) Lymph % (Auto) [place] % (Auto) Eos % (Auto) Baso % (Auto) Immature Gran # (Auto) Neut # (Auto) Lymph # (Auto) [place] # (Auto) Eos # (Auto) Baso # (Auto) Puncture Site O2 Saturation ABG pH ABG pCO2 ABG pO2 ABG HCO3 ABG Total CO2 ABG Base Excess Tim Test O2 Delivery Device Oxygen Liter Flow FiO2 % Sodium Potassium Chloride Carbon Dioxide Anion Gap BUN Creatinine Estimated GFR (MDRD) BUN/Creatinine Ratio Glucose Lactic Acid 19.3 Calcium Total Bilirubin AST ALT Alkaline Phosphatase Total Creatine Kinase Troponin I B-Natriuretic Peptide 851 H Total Protein Albumin Globulin Albumin/Globulin Ratio Procalcitonin 0.08 06/12/18 22:11 WBC RBC Hgb Hct MCV MCH MCHC RDW Coeff of Niurka Plt Count Immature Gran % (Auto) Neut % (Auto) Lymph % (Auto) [place] % (Auto) Eos % (Auto) Baso % (Auto) Immature Gran # (Auto) Neut # (Auto) Lymph # (Auto) [place] # (Auto) Eos # (Auto) Baso # (Auto) Puncture Site Lbrach O2 Saturation 93.0 L ABG pH 7.366 ABG pCO2 42.4 ABG pO2 69.0 L ABG HCO3 24.3 ABG Total CO2 26 ABG Base Excess -1 Tim Test + O2 Delivery Device Nrb Oxygen Liter Flow 15.00 FiO2 % 100.0 Sodium Potassium Chloride Carbon Dioxide Anion Gap BUN Creatinine Estimated GFR (MDRD) BUN/Creatinine Ratio Glucose Lactic Acid Calcium Total Bilirubin AST ALT Alkaline Phosphatase Total Creatine Kinase Troponin I B-Natriuretic Peptide Total Protein Albumin Globulin Albumin/Globulin Ratio Procalcitonin Orders Category Date Time Status ABG DRAW REQUEST Routine CARDIO 06/12/18 22:11 Completed ABG DRAW REQUEST Stat CARDIO 06/12/18 21:46 Completed EKG-(ED ONLY) Stat CARDIO 06/12/18 21:46 Completed NEBULIZER TREATMENT Routine CARDIO 06/12/18 23:40 Completed NEBULIZER TREATMENT Stat CARDIO 06/12/18 21:46 Completed NEBULIZER TREATMENT Stat CARDIO 06/12/18 22:13 Completed ACTIVITY .Early Mobilization for VTE Prevention CARE 06/12/18 23:31 Active BLOOD GLUCOSE MONITORING ACCUCHECK Q6H CARE 06/12/18 23:40 Active INTAKE & OUTPUT Q8HR CARE 06/12/18 23:31 Active VITAL SIGNS Q4HR CARE 06/12/18 23:31 Active REGULAR DIET DIETARY 06/12/18 Breakfast Completed ED APPLY O2 .ONCE EMERGENCY 06/12/18 21:46 Active ED RING MAKER APPLIED .ONCE EMERGENCY 06/12/18 21:46 Active ED IV/MEDIPORT/POWERPORT .ONCE EMERGENCY 06/12/18 21:46 Active ABG Stat LAB 06/12/18 21:46 Completed ABG Stat LAB 06/12/18 22:11 Completed B-TYPE NATRIURETIC PEPTIDE Stat LAB 06/12/18 22:04 Completed BLOOD CULTURE Stat LAB 06/12/18 22:28 Received CBC W/ AUTO DIFF Stat LAB 06/12/18 22:04 Completed COMPREHENSIVE METABOLIC PANEL Stat LAB 06/12/18 22:04 Completed CREATINE KINASE Stat LAB 06/12/18 22:04 Completed LACTIC ACID Stat LAB 06/12/18 22:04 Completed PROCALCITONIN Stat LAB 06/12/18 22:04 Completed TROPONIN I Stat LAB 06/12/18 22:04 Completed 0.9 % Sodium Chloride [Saline Flush] MEDS 06/12/18 21:46 Discontinued 1 syr IVF PRN PRN Ipratropium/Albuterol Neb [Duoneb] MEDS 06/12/18 21:46 Discontinued 1 vial NEB ONCE STA Ipratropium/Albuterol Neb [Duoneb] MEDS 06/12/18 23:30 Discontinued 1 vial NEB RTQ2H PRN Ipratropium/Albuterol Neb [Duoneb] MEDS 06/13/18 06:00 Discontinued 1 vial NEB RTQID Levalbuterol HCl [Xopenex 1.25 mg] MEDS 06/12/18 22:13 Discontinued 1 vial NEB ONCE STA Methylprednisolone Sod Succ/Pf [Solu-Medrol 125 mg] MEDS 06/12/18 21:48 Discontinued 125 mg IVP ONCE STA Methylprednisolone Sod Succ/Pf [Solu-Medrol 125 mg] MEDS 06/13/18 05:00 Discontinued 125 mg IVP Q8HR Ondansetron HCl/Pf [Zofran 4 mg/2 ml] MEDS 06/12/18 23:30 Discontinued 4 mg IVP Q6H PRN RESUSCITATION STATUS Routine OTHERS 06/12/18 23:30 Ordered CHEST, 1V AP ONLY Stat RADS 06/12/18 21:46 Completed PT CONSULT Routine THERAPIES 06/12/18 Ordered Medications Discontinued Medications Generic Name Dose Route Start Last Admin Trade Name Freq PRN Reason Stop Dose Admin Albuterol/Ipratropium 1 vial 06/12/18 21:46 06/12/18 21:48 Duoneb NEB 06/12/18 21:47 1 vial ONCE STA Administration Albuterol/Ipratropium 1 vial 06/13/18 06:00 Duoneb NEB RTQID MARLENA Albuterol/Ipratropium 1 vial 06/12/18 23:30 Duoneb NEB RTQ2H PRN Wheezing Levalbuterol HCl 1 vial 06/12/18 22:13 06/12/18 22:15 Xopenex 1.25 Mg NEB 06/12/18 22:14 1 vial ONCE STA Administration Methylprednisolone Sodium Succinate 125 mg 06/12/18 21:48 06/12/18 22:03 Solu-Medrol 125 Mg IVP 06/12/18 21:49 125 mg ONCE STA Administration Methylprednisolone Sodium Succinate 125 mg 06/13/18 05:00 Solu-Medrol 125 Mg IVP Q8HR MARLENA Ondansetron HCl 4 mg 06/12/18 23:30 Zofran 4 Mg/2 Ml IVP Q6H PRN Nausea / Vomiting Sodium Chloride 1 syr 06/12/18 21:46 06/12/18 22:05 Saline Flush IVF 1 syr PRN PRN Administration To flush IV Vital Signs: Temp Pulse Resp BP Pulse Ox 06/12/18 21:56 84 107/73 92 L 06/12/18 21:43 98.3 F 87 32 H 127/76 76 L LISA Risk Score LISA Risk Score: Risk Score Odds of by 30D 0 0.1 (0.1-0.2) 1 0.3 (0.2-0.3) 2 0.4 (0.3-0.5) 3 0.7 (0.6-0.9) 4 1.2 (1.0-1.5) 5 2.2 (1.9-2.6) 6 3.0 (2.5-3.6) 7 4.8 (3.8-6.1) Departure - Departure Time of Disposition: 01:30 Disposition: TSF SHORT-TRM HOSP Discharge Problem: COPD with exacerbation Respiratory failure Qualifiers: Chronicity: acute Respiratory failure complication: hypoxia Qualified Code(s): J96.01 - Acute respiratory failure with hypoxia Condition: Fair Pt referred to PMD for follow-up: No IPMP verified?: No Allergies/Adverse Reactions: Allergies indomethacin [From Indocin] Adverse Reaction (Unverified 06/03/17 13:46) indomethacin sodium [From Indocin] Adverse Reaction (Unverified 06/03/17 13:46) morphine Adverse Reaction (Unverified 06/03/17 13:46) Penicillins Adverse Reaction (Unverified 06/03/17 13:46) Home Medications: Ambulatory Orders Acetaminophen [Pain Relief] 650 mg PO Q4HR PRN 05/07/17 Amlodipine Besylate [Norvasc] 5 mg PO DAILY 05/07/17 Ascorbic Acid 500 mg PO BID 05/07/17 Atorvastatin Calcium [Lipitor] 80 mg PO DAILY 05/07/17 Bisacodyl 10 mg RC DAILY PRN 05/07/17 Budesonide 0.5 mg IH BID 05/07/17 Budesonide/Formoterol Fumarate [Symbicort 160-4.5 Mcg Inhaler] 1 puff IH BID Cephalexin [Keflex] 500 mg PO Q6HR 05/07/17 Cholecalciferol (Vitamin D3) [Vitamin D3] 5,000 unit PO DAILY 05/07/17 Clopidogrel Bisulfate [Plavix] 75 mg PO DAILY 05/07/17 Cyanocobalamin (Vitamin B-12) [Vitamin B-12] 1,000 mcg PO DAILY 05/07/17 Docusate Sodium 100 mg PO Q12HR PRN 05/07/17 Furosemide [Lasix] 40 mg PO BIDAC 05/07/17 Hydrochlorothiazide 25 mg PO DAILY 05/07/17 Hydrocodone/Acetaminophen [Hydrocodon-Acetaminophen 5-325] 1 each PO Q4HR PRN Insulin Aspart [Novolog Insulin] 100 unit SUBCUT DIRECTED 05/07/17 Ipratropium/Albuterol Neb [Duoneb] 1 vial NEB RTQ4H 05/07/17 Ipratropium/Albuterol Neb [Duoneb] 1 vial Q4HR PRN 05/07/17 Isosorbide Mononitrate [Imdur] 30 mg PO DAILY 05/07/17 Magnesium Hydroxide [Milk of Magnesia] 30 ml PO DAILY PRN 05/07/17 Metformin HCl 500 mg PO BID 05/07/17 Metoprolol Tartrate 100 mg PO BID 05/07/17 Omeprazole [Prilosec] 20 mg PO BIDAC 05/07/17 Polyethylene Glycol 3350 [Miralax] 17 gm PO DAILY 05/07/17 Prednisone 10 mg PO DAILYWM 05/07/17 Saccharomyces Boulardii [Florastor] 250 mg PO BID 05/07/17 Spironolactone 25 mg PO DAILY 05/07/17 Tiotropium [place] [Spiriva] 1 cap IH DAILY 05/07/17 Apixaban [Eliquis] 5 mg PO BID 06/03/17
[2018-06-12] MEDS ORDERED: DUONEB NEB PRN (23:30)
[2018-06-12] MEDS ORDERED: ZOFRAN 4 MG/2 ML IVP PRN (23:30)
[2018-06-13] MEDS ORDERED: SOLU-MEDROL 125 MG IVP SCH (05:00)
[2018-06-13] MEDS ORDERED: DUONEB NEB SCH (06:00)
== END 2018-06-13 03:35 | disposition short-term general hospital (02) ==
LOC: ED 21:42 → SCU 23:25 → UNDOADMIN 23:25 → ED 06-13 03:35
DX: J44.1 Chronic obstructive pulmonary disease with (acute) exacerbation (principal); J96.01 Acute respiratory failure with hypoxia; I10 Essential (primary) hypertension; E11.9 Type 2 diabetes mellitus without complications; Z79.899 Other long term (current) drug therapy; R06.02 Shortness of breath
CPT/HCPCS: 36415; 80053; 82550; 82803; 83605; 83880; 84145; 84484; 85025; 87040; 93005; 93010; 94640; 96374; 99285